=== PATIENT | male | born 1965 | race Caucasian/White ===

== ENCOUNTER 2018-12-08 09:21 | Outpatient (CLI) | payer OTHER ==
[2018-12-08 17:11] LABS: BASOPHILS # (AUTO) 0.1 10^3/uL (0.0-0.1); BASOPHILS % (AUTO) 1.1 %; EOSINOPHILS # (AUTO) 0.1 10^3/uL (0.0-0.7); EOSINOPHILS % (AUTO) 2.6 %; HGB - HEMOGLOBIN 10.6 g/dL (14.0-18.0); LYMPHOCYTES # (AUTO) 1.3 10^3/uL (1.5-3.5); LYMPHOCYTES % (AUTO) 28.8 %; MEAN CORPUSCULAR HEMOGLOBIN 34.9 pg (27.0-31.0); MEAN CORPUSCULAR HGB CONC 33.1 g/dL (32.0-36.0); MEAN CORPUSCULAR VOLUME 105.3 fL (80.0-94.0); MEAN PLATELET VOLUME 11.3 fL (7.4-11.4); MONOCYTES # (AUTO) 0.6 10^3/uL (0.0-1.0); MONOCYTES % (AUTO) 12.4 %; NEUTROPHILS # (AUTO) 2.6 10^3/uL (1.5-6.6); NEUTROPHILS % (AUTO) 54.7 %; PLT - PLATELET COUNT 181 10^3/uL (130-450); RED BLOOD COUNT 3.04 10^6/uL (4.70-6.10); RED CELL DISTRIBUTION WIDTH 14.2 % (12.0-15.0); WHITE BLOOD COUNT 4.7 x10^3/uL (4.8-10.8)
[2018-12-08 17:33] LABS: % IRON SATURATION 36 % (20-50); IRON 105 ug/dL (45-182); TOTAL IRON BINDING CAPACITY 295 ug/dL (250-450); TRANSFERRIN 211 mg/dL (180-329)
[2018-12-08 17:54] LABS: PLATELET MORPHOLOGY NORMAL APPEARANCE (NORMAL); RBC MORPHOLOGY (MULTIPLE) 1+ MACROCYTOSIS (NORMAL)
[2018-12-08 17:55] LABS: DIFFERENTIAL COMMENT MANUAL=AUTO DIFF; PLATELET ESTIMATE, MANUAL NORMAL (130-450,000) (NORMAL)
== END 2018-12-08 09:22 | disposition home or self-care (01) ==
LOC: LAB.S 09:21
PROVIDERS: ATTEND Nurse Practitioner Family
DX: D64.9 Anemia, unspecified (principal); R77.8 Other specified abnormalities of plasma proteins
CPT/HCPCS: 36415; 82728; 83540; 84466; 85025

== ENCOUNTER 2020-03-19 08:04 | Outpatient (CLI) | payer MEDICAID ==
[2020-03-19 15:42] LABS: BASOPHILS % (AUTO) 0.5 %; EOSINOPHILS # (AUTO) 0.5 10^3/uL (0.0-0.7); EOSINOPHILS % (AUTO) 5.7 %; HGB - HEMOGLOBIN 10.6 g/dL (14.0-18.0); LYMPHOCYTES # (AUTO) 2.9 10^3/uL (1.5-3.5); MEAN CORPUSCULAR HEMOGLOBIN 38.1 pg (27.0-31.0); MEAN CORPUSCULAR HGB CONC 35.2 g/dL (32.0-36.0); MEAN CORPUSCULAR VOLUME 108.3 fL (80.0-94.0); MEAN PLATELET VOLUME 12.4 fL (7.4-11.4); MONOCYTES # (AUTO) 0.7 10^3/uL (0.0-1.0); MONOCYTES % (AUTO) 8.9 %; NEUTROPHILS # (AUTO) 3.9 10^3/uL (1.5-6.6); NEUTROPHILS % (AUTO) 48.7 %; PLT - PLATELET COUNT 72 10^3/uL (130-450); RED BLOOD COUNT 2.78 10^6/uL (4.70-6.10); RED CELL DISTRIBUTION WIDTH 12.8 % (12.0-15.0); WHITE BLOOD COUNT 8.1 x10^3/uL (4.8-10.8)
[2020-03-19 16:01] LABS: ALBUMIN/GLOBULIN RATIO 0.5 (1.0-2.2); ALKALINE PHOSPHATASE 81 IU/L (42-121); ALT ALANINE AMINOTRANSFERASE 36 IU/L (10-60); AST ASPARTATE AMINOTRANSFERASE 103 IU/L (10-42); BILIRUBIN,TOTAL 5.9 mg/dL (0.2-1.0); BUN - BLOOD UREA NITROGEN 11 mg/dL (6-20); CALCIUM 8.6 mg/dL (8.5-10.3); CARBON DIOXIDE - CO2 26 mmol/L (21-32); CHLORIDE 96 mmol/L (101-111); CHOL/HDL RATIO 8.1 (<5.0); CHOLESTEROL 179 mg/dL; CREATININE 1.2 mg/dL (0.6-1.2); CRP - C-REACTIVE PROTEIN 1.1 mg/dL (0-1.0); GLUCOSE 140 mg/dL (70-100); HDL CHOLESTEROL 22 mg/dL; LDL CHOLESTEROL,CALCULATED 133 mg/dL; SODIUM 136 mmol/L (135-145); TOTAL PROTEIN 8.7 g/dL (6.7-8.2); VLDL CHOLESTEROL 24 mg/dL
[2020-03-19 18:47] LABS: HEMOGLOBIN A1c% 8.7 % (4.27-6.07)
== END 2020-03-19 08:05 | disposition home or self-care (01) ==
LOC: LAB.S 08:04
PROVIDERS: ATTEND Physician Assistant
DX: M06.9 Rheumatoid arthritis, unspecified (principal); K76.0 Fatty (change of) liver, not elsewhere classified; D64.9 Anemia, unspecified; E55.9 Vitamin D deficiency, unspecified; F32.9 Major depressive disorder, single episode, unspecified; E11.9 Type 2 diabetes mellitus without complications; L40.9 Psoriasis, unspecified; K86.1 Other chronic pancreatitis; I10 Essential (primary) hypertension; E78.5 Hyperlipidemia, unspecified
CPT/HCPCS: 36415; 80050; 80061; 82306; 83036; 83721; 84153; 85651; 86140

== ENCOUNTER 2020-03-20 13:51 | Outpatient (CLI) | payer MEDICAID ==
[2020-03-20 20:08] LABS: BASOPHILS % (AUTO) 0.5 %; EOSINOPHILS # (AUTO) 0.3 10^3/uL (0.0-0.7); HGB - HEMOGLOBIN 10.6 g/dL (14.0-18.0); LYMPHOCYTES # (AUTO) 2.2 10^3/uL (1.5-3.5); MEAN CORPUSCULAR HEMOGLOBIN 38.4 pg (27.0-31.0); MEAN CORPUSCULAR HGB CONC 35.6 g/dL (32.0-36.0); MEAN PLATELET VOLUME 12.2 fL (7.4-11.4); MONOCYTES # (AUTO) 0.5 10^3/uL (0.0-1.0); MONOCYTES % (AUTO) 6.3 %; NEUTROPHILS # (AUTO) 4.7 10^3/uL (1.5-6.6); NEUTROPHILS % (AUTO) 60.9 %; PLT - PLATELET COUNT 71 10^3/uL (130-450); RED BLOOD COUNT 2.76 10^6/uL (4.70-6.10); RED CELL DISTRIBUTION WIDTH 13.3 % (12.0-15.0); WHITE BLOOD COUNT 7.7 x10^3/uL (4.8-10.8)
[2020-03-20 20:25] LABS: ALBUMIN 2.9 g/dL (3.2-5.5); ALBUMIN/GLOBULIN RATIO 0.5 (1.0-2.2); BILIRUBIN,TOTAL 5.3 mg/dL (0.2-1.0); CALCIUM 8.5 mg/dL (8.5-10.3); CREATININE 1.6 mg/dL (0.6-1.2); TOTAL PROTEIN 8.7 g/dL (6.7-8.2)
[2020-03-20 20:48] LABS: CREATININE,URINE 222.9 mg/dL; MICROALBUM/CREATININE RATIO,UR 7.2 ug/mg (<30.0); MICROALBUMIN,URINE 1.6 mg/dL (0-300.0)
[2020-03-24 11:22] LABS: ANA SCREEN NEGATIVE (NEGATIVE)
[2020-03-26 02:56] LABS: LIVER KIDNEY MICROSOME AB <20.0 U
== END 2020-03-20 13:52 | disposition home or self-care (01) ==
LOC: LAB.S 13:51
PROVIDERS: ATTEND Physician Assistant
DX: R70.0 Elevated erythrocyte sedimentation rate (principal); R74.8 Abnormal levels of other serum enzymes; R89.9 Unspecified abnormal finding in specimens from other organs, systems and tissues; R23.3 Spontaneous ecchymoses; E78.5 Hyperlipidemia, unspecified; K76.0 Fatty (change of) liver, not elsewhere classified; D64.9 Anemia, unspecified; K86.1 Other chronic pancreatitis; I10 Essential (primary) hypertension
CPT/HCPCS: 36415; 80053; 81001; 81599; 82043; 82390; 82570; 83516; 84466; 85025; 85651; 86038; 86376; 87086

== ENCOUNTER 2020-03-20 15:51 | Observation (INO) | payer MEDICAID, OTHER ==
--- NOTE | 2020-03-20 16:23 | ED Physician Documentation ---
History of Present Illness - Stated complaint Stated Complaint: SENT BY DOC - Chief complaint Chief Complaint: Abd Pain - History obtained from History obtained from: Patient - Additonal information Additional information: 54-year-old male presents to the emergency department on the advice of his primary care provider for evaluation of abnormal liver function tests and an elevated bilirubin (5.9). Patient reports that he feels well with the exception of fatigue and loss of appetite. He was notified by his primary care provider today that he has markedly elevated bilirubin and was told to come to the emergency department. He does state that 3 weeks ago he developed petechiae and purpura on his lower legs. He did see his primary care provider. It is unclear what the treatment was for that and it had begun to resolve until it began to worsen over the last 3 to 4 days. PMH: hypertension, diabetes and depression. Meds: Metformin, losartan, bupropion Social: No tobacco. History of EtOH use/abuse. No alcohol for 3 months. He denies chest pain, shortness of breath nausea vomiting or diarrhea. He has no melena or hematochezia. He denies any fevers cough or congestion. He does report that he is lost his appetite over the last week. Review of Systems Constitutional: reports: Myalgias, Fatigue. denies: Fever, Chills, Weight Loss, Sweats Eyes: reports: Reviewed and negative Ears: reports: Reviewed and negative Nose: reports: Reviewed and negative Throat: reports: Reviewed and negative Cardiac: reports: Reviewed and negative Respiratory: reports: Reviewed and negative GI: denies: Abdominal Pain, Abdominal Swelling, Nausea, Vomiting, Hematemesis, Bloody / black stool : denies: Dysuria, Frequency, Hesitancy Skin: reports: Rash, Lesions (Extensive purpura bilateral lower extremities) Musculoskeletal: reports: Reviewed and negative Neurologic: reports: Generalized weakness PD PAST MEDICAL HISTORY - Allergies Allergies/Adverse Reactions: Allergies Allergy/AdvReac Type Severity Reaction Status Date / Time No Known Drug Allergies Allergy Verified 03/20/20 15:57 PD ED PE EXPANDED - General General: Alert, No acute distress, Well developed/nourished - HEENT HEENT: Scleral icterus - Neck Neck: Supple w/out meningeal sx, No tenderness. No: Adenopathy, Soft tissue TTP - Cardiac Cardiac: Regular Rate, Regular Rhythm, Radial strong equal, Pedal strong equal, Cap refill < 2 sec. No: Murmur Present - Respiratory Respiratory: Clear to ausultation ben. No: Distress, Labored - Abdomen Abdomen: Normal Bowel sounds. No: Tender to palpation - Derm Derm: Purpura (Extensive purpura on the soles of the feet lower extremities and thighs. No petechiae or purpura of the abdomen arms.) - Extremities Extremities: Pedal Pulses Present. No: Deformity, Tenderness, Pedal edema bilateral, Right calf TTP/cord, Left calf TTP/cord - Neuro Neuro: Alert and Oriented X 3, CNII-XII intact, Normal gait, Normal finger nose, Normal speech - GCS Eye Opening: Spontaneous Motor: Obeys Commands Verbal: Oriented Total: 15 Results - Vitals Vitals: Vital Signs - 24 hr 03/20/20 03/20/20 03/20/20 15:53 17:05 19:00 Temperature 36.3 C L 36.3 C L Heart Rate 112 H 95 91 Respiratory 16 16 16 Rate Blood Pressure 119/64 108/68 110/65 O2 Saturation 99 98 99 Oxygen O2 Source Room air - Labs Labs: Laboratory Tests 03/20/20 03/20/20 03/20/20 16:13 16:13 16:13 WBC 6.9 RBC 2.74 L Hgb 10.5 L Hct 29.0 L MCV 105.8 H MCH 38.3 H MCHC 36.2 H RDW 13.1 Plt Count 71 L MPV 10.8 Neut # (Auto) 4.6 Lymph # (Auto) 1.6 [place] # (Auto) 0.5 Eos # (Auto) 0.2 Baso # (Auto) 0.0 Absolute Nucleated RBC 0.00 Nucleated RBC % 0.0 ESR PT INR Sodium 133 L Potassium 3.7 Chloride 92 L Carbon Dioxide 21 Anion Gap 20.0 H BUN 11 Creatinine 1.8 H Estimated GFR (MDRD) 40 L Glucose 162 H Calcium 8.3 L Total Bilirubin 5.3 H AST 97 H ALT 36 Alkaline Phosphatase 87 Ammonia 112.6 H* C-Reactive Protein 1.0 Total Protein 8.4 H Albumin 3.0 L Globulin 5.4 H Albumin/Globulin Ratio 0.6 L Lipase 25 Urine Color Urine Clarity Urine pH Ur Specific [place] Urine Protein Urine Glucose (UA) Urine Ketones Urine Occult Blood Urine Nitrite Urine Bilirubin Urine Urobilinogen Ur Leukocyte Esterase Ur Microscopic Review Urine Culture Comments Nasal Adenovirus (PCR) Nasal B. parapertussis DNA (PCR) Nasal Coronavir 229E PCR Nasal Coronavir HKU1 PCR Nasal Coronavir NL63 PCR Nasal Coronavir OC43 PCR Nasal Enterovir/Rhinovir PCR Nasal Influenza B PCR Nasal Influenza A PCR Nasal Parainfluen 1 PCR Nasal Parainfluen 2 PCR Nasal Parainfluen 3 PCR Nasal Parainfluen 4 PCR Nasal RSV (PCR) Nasal B.pertussis DNA PCR Nasal C.pneumoniae (PCR) Osmani Human Metapneumo PCR Nasal M.pneumoniae (PCR) Nasal SARS-CoV-2 (PCR) Rheumatoid Factor 03/20/20 03/20/20 03/20/20 16:13 16:13 16:13 WBC RBC Hgb Hct MCV MCH MCHC RDW Plt Count MPV Neut # (Auto) Lymph # (Auto) [place] # (Auto) Eos # (Auto) Baso # (Auto) Absolute Nucleated RBC Nucleated RBC % ESR > 140 H PT 21.4 H INR 2.0 H Sodium Potassium Chloride Carbon Dioxide Anion Gap BUN Creatinine Estimated GFR (MDRD) Glucose Calcium Total Bilirubin AST ALT Alkaline Phosphatase Ammonia C-Reactive Protein Total Protein Albumin Globulin Albumin/Globulin Ratio Lipase Urine Color Urine Clarity Urine pH Ur Specific [place] Urine Protein Urine Glucose (UA) Urine Ketones Urine Occult Blood Urine Nitrite Urine Bilirubin Urine Urobilinogen Ur Leukocyte Esterase Ur Microscopic Review Urine Culture Comments Nasal Adenovirus (PCR) Nasal B. parapertussis DNA (PCR) Nasal Coronavir 229E PCR Nasal Coronavir HKU1 PCR Nasal Coronavir NL63 PCR Nasal Coronavir OC43 PCR Nasal Enterovir/Rhinovir PCR Nasal Influenza B PCR Nasal Influenza A PCR Nasal Parainfluen 1 PCR Nasal Parainfluen 2 PCR Nasal Parainfluen 3 PCR Nasal Parainfluen 4 PCR Nasal RSV (PCR) Nasal B.pertussis DNA PCR Nasal C.pneumoniae (PCR) Osmani Human Metapneumo PCR Nasal M.pneumoniae (PCR) Nasal SARS-CoV-2 (PCR) Rheumatoid Factor NEGATIVE 03/20/20 03/20/20 16:30 19:38 WBC RBC Hgb Hct MCV MCH MCHC RDW Plt Count MPV Neut # (Auto) Lymph # (Auto) [place] # (Auto) Eos # (Auto) Baso # (Auto) Absolute Nucleated RBC Nucleated RBC % ESR PT INR Sodium Potassium Chloride Carbon Dioxide Anion Gap BUN Creatinine Estimated GFR (MDRD) Glucose Calcium Total Bilirubin AST ALT Alkaline Phosphatase Ammonia C-Reactive Protein Total Protein Albumin Globulin Albumin/Globulin Ratio Lipase Urine Color YELLOW Urine Clarity CLEAR Urine pH 6.0 Ur Specific [place] <=1.005 Urine Protein NEGATIVE Urine Glucose (UA) NEGATIVE Urine Ketones NEGATIVE Urine Occult Blood TRACE-INTA Urine Nitrite NEGATIVE Urine Bilirubin NEGATIVE Urine Urobilinogen 1 (NORMAL) Ur Leukocyte Esterase NEGATIVE Ur Microscopic Review NOT INDICATED Urine Culture Comments NOT INDICATED Nasal Adenovirus (PCR) NOT DETECTED Nasal B. parapertussis DNA (PCR) NOT DETECTED Nasal Coronavir 229E PCR NOT DETECTED Nasal Coronavir HKU1 PCR NOT DETECTED Nasal Coronavir NL63 PCR NOT DETECTED Nasal Coronavir OC43 PCR NOT DETECTED Nasal Enterovir/Rhinovir PCR NOT DETECTED Nasal Influenza B PCR NOT DETECTED Nasal Influenza A PCR NOT DETECTED Nasal Parainfluen 1 PCR NOT DETECTED Nasal Parainfluen 2 PCR NOT DETECTED Nasal Parainfluen 3 PCR NOT DETECTED Nasal Parainfluen 4 PCR NOT DETECTED Nasal RSV (PCR) NOT DETECTED Nasal B.pertussis DNA PCR NOT DETECTED Nasal C.pneumoniae (PCR) NOT DETECTED Osmani Human Metapneumo PCR NOT DETECTED Nasal M.pneumoniae (PCR) NOT DETECTED Nasal SARS-CoV-2 (PCR) NOT DETECTED Rheumatoid Factor - Rads (name of study) abd US Radiology: Final report received (Cirrhosis with heterogeneous hepatic parenchymal attenuation. No definite evidence of discrete mass although cirrhotic liver features limit the sensitivity of ultrasound. Markedly hydropic gallbladder with sludge but no evidence of tension distention and or wall thick ening to indicate cholecystitis) CT abd w Radiology: Final report received (Cirrhotic liver with suggestion of a possible mass although this may simply represent a pseudomass caused by surrounding atrophy as a function of cirrhosis. Nonemergent hepatic protocol MRI is recommended) PD MEDICAL DECISION MAKING - ED course Complexity details: reviewed results, re-evaluated patient, considered differential, d/w patient, d/w international travel consultant (Dr. Ramon GI) ED course: 54-year-old gentleman presents to the emergency department for evaluation of elevated bilirubin seen on labs obtained yesterday. He also has a 3-week history of purpura in his lower extremities as well as fatigue and anorexia. Today on labs we do note a mild anemia with thrombocytopenia and a platelet count of 72. This is stable in comparison to yesterday's values. Though he does have significant purpura of his lower extremities, he denies any melena or hematochezia. He does not have any bruising or bleeding of the gums. He does have an elevated INR as well as a bilirubin of 3.0. He has only mild AST elevation. His alk phos is essentially normal. An ultrasound of the abdomen is consistent with cirrhosis. A CT of the abdomen is also consistent with cirrhosis. There is concerned that there may be a pseudomass within the liver but it is difficult to appreciate on CT scan. A dedicated MRI is recommended. This gentleman's MELD score is 28 giving him an approximately 20% mortality in the next 3 months Of concern for this gentleman is an elevated ammonia level as well as worsening kidney function over the last 24 hours. Today's creatinine is 1.8. While here in the emergency department I have ordered 2 L of crystalloid as well as 30 gm of lactulose 1729: I did speak with Dr. Adam the daytime hospitalist. She agrees to bring the patient in under an observation status overnight for evaluation of his acute kidney injury, to provide hydration and reevaluate labs in a.m. She did request that I speak with [facility] for input 1899: I did discuss this case on the phone with Dr. Ramon a crop or grain farmworker associated with [facility]. At this point he feels that this gentleman likely has decompensated cirrhosis. Given the worsening kidney function he recommends aggressive volume challenge overnight. He would recommend that we initiate lactulose treatment for the elevated ammonia level. He will need close follow-up with gastroenterology upon discharge 1944: I have spoken with and Joselito on the phone and notified them of the conversation I had with GI. The plan is to admit the patient overnight on an observation status with the goal of therapy being to see an improvement in his acute kidney injury. The long-term plan should be for outpatient follow-up with gastroenterology. Observation status overnight is appropriate for this plan. Departure - Departure Disposition: ED Place in Observation Clinical Impression: Hyperbilirubinemia, DREAD (acute kidney injury), Increased ammonia level, Purpura, Decompensation of cirrhosis of liver
[2020-03-20 16:24] LABS: BASOPHILS % (AUTO) 0.4 %; EOSINOPHILS # (AUTO) 0.2 10^3/uL (0.0-0.7); EOSINOPHILS % (AUTO) 2.2 %; HGB - HEMOGLOBIN 10.5 g/dL (14.0-18.0); LYMPHOCYTES # (AUTO) 1.6 10^3/uL (1.5-3.5); LYMPHOCYTES % (AUTO) 23.1 %; MEAN CORPUSCULAR HEMOGLOBIN 38.3 pg (27.0-31.0); MEAN CORPUSCULAR HGB CONC 36.2 g/dL (32.0-36.0); MEAN CORPUSCULAR VOLUME 105.8 fL (80.0-94.0); MEAN PLATELET VOLUME 10.8 fL (7.4-11.4); MONOCYTES # (AUTO) 0.5 10^3/uL (0.0-1.0); MONOCYTES % (AUTO) 7.4 %; NEUTROPHILS # (AUTO) 4.6 10^3/uL (1.5-6.6); NEUTROPHILS % (AUTO) 66.6 %; PLT - PLATELET COUNT 71 10^3/uL (130-450); RED BLOOD COUNT 2.74 10^6/uL (4.70-6.10); RED CELL DISTRIBUTION WIDTH 13.1 % (12.0-15.0); WHITE BLOOD COUNT 6.9 x10^3/uL (4.8-10.8)
[2020-03-20 16:38] LABS: ALBUMIN/GLOBULIN RATIO 0.6 (1.0-2.2); BILIRUBIN,TOTAL 5.3 mg/dL (0.2-1.0); CALCIUM 8.3 mg/dL (8.5-10.3); CREATININE 1.8 mg/dL (0.6-1.2); TOTAL PROTEIN 8.4 g/dL (6.7-8.2)
--- NOTE | 2020-03-20 16:38 | XRAY Report ---
PROCEDURE: Chest 1 View X-Ray INDICATIONS: Chest pain TECHNIQUE: One view of the chest was acquired. COMPARISON: None. FINDINGS: Surgical changes and devices: None. Lungs and pleura: No pleural effusions or pneumothorax. Lungs are clear. Mediastinum: Mediastinal contours appear normal. Heart size is normal. Bones and chest wall: No suspicious bony lesions. Overlying soft tissues appear unremarkable. IMPRESSION: No acute cardiopulmonary process. Reviewed by: Aldair Clemens MD on 03/20/2020 3:36 PM [facility] Approved by: Aldair Clemens MD on 03/20/2020 3:36 PM [facility] Station ID: [id number]
[2020-03-20 16:46] LABS: PT - PROTHROMBIN TIME 21.4 secs (9.9-12.6)
--- NOTE | 2020-03-20 17:26 | Ultrasound Report ---
PROCEDURE: Abdomen Limited INDICATIONS: jaundice, elevated bili, purpura TECHNIQUE: Real-time focused scanning was performed of the abdomen, with image documentation. COMPARISON: None FINDINGS: Markedly coarsened hepatic echotexture with a nodular hepatic contour, findings which are indicative of cirrhosis. There is no definite evidence of a discrete hepatic mass, although there are areas of h eterogenous parenchymal attenuation suspicious for a possible infiltrative mass. No intrahepatic biliary ductal dilatation. The common duct measures 6-7 mm at the weston hepatis and 9 mm distally near the pancreatic head. The gallbladder is markedly hydropic, measuring up to 16 cm in greatest dimension, however does not a ppear to be tense. There is no wall thickening or pericholecystic fluid. Sludge is noted within the g allbladder layering dependently. The pancreas is obscured by bowel/gastric gas and is not evaluated. Unremarkable right kidney. IMPRESSION: Cirrhosis with heterogenous hepatic parenchymal attenuation. No definite evidence of discrete mass al though cirrhotic liver features limit the sensitivity of ultrasound. It is understood that the patien t has a CT of the abdomen and pelvis pending, which will help to further evaluate for potential liver mass. Markedly hydropic gallbladder with sludge but no evidence of tension/distention or wall thickening to indicate cholecystitis. Reviewed by: Aldair Clemens MD on 03/20/2020 4:25 PM [facility] Approved by: Aldair Clemens MD on 03/20/2020 4:25 PM [facility] Station ID: [id number]
[2020-03-20 17:34] LABS: C. PNEUMONIAE- RESP PCR PANEL NOT DETECTED
[2020-03-20 17:36] LABS: RHEUMATOID FACTOR NEGATIVE (Negative)
[2020-03-20] MEDS ORDERED: IOVERSOL 320 100 ML VIAL IVP ONE ×2 (17:37→18:24)
[2020-03-20] MEDS ORDERED: SODIUM CHLORIDE 0.9% 1,000 ML IV STA ×2 (18:00→19:16)
--- NOTE | 2020-03-20 18:05 | CT Report ---
PROCEDURE: Abdomen/Pelvis W INDICATIONS: Elevated bilirubin, purpura CONTRAST: IV CONTRAST: Optiray 320 ml: 100 PO CONTRAST: *NO PO CONTRAST TECHNIQUE: After the administration of intravenous contrast, 5 mm thick sections acquired from the diaphragms to the symphysis. 5 mm thick coronal and sagittal reformats were acquired. For radiation dose reducti on, the following was used: automated exposure control, adjustment of mA and/or kV according to jocelin ent size. COMPARISON: Same-day ultrasound FINDINGS: Image quality: Excellent. ABDOMEN: Lung bases: Lung bases are clear. Heart size is normal. Solid organs: Heterogenous mottled attenuation of the liver with nodular contour, consistent with son ographic features of cirrhosis. There is no definite evidence of a liver mass, although there is a so mewhat masslike exophytic margin of the medial right hepatic lobe border (best appreciated on series 3 image 31 and series 6 image 17). Hepatic and portal veins are patent. Spleen is been removed. Adren al glands unremarkable. Kidneys within normal limits. No pancreatic abnormality identified. Hydropic gallbladder with no findings of cholecystitis. Peritoneum and bowel: No abnormally dilated or thickened loops of bowel. No pericolonic or mesenteric inflammatory changes. Nodes and vessels: No retroperitoneal or mesenteric adenopathy by size criteria. Aorta and inferior vena cava are normal in size. Miscellaneous: No ventral hernias. PELVIS: Genitourinary: Bladder wall thickness is normal. Prostate is within normal limits. Miscellaneous: No threshold enlarged pelvic or inguinal lymph node. Bones: No suspicious bony lesions. No vertebral body compression fractures. IMPRESSION: Cirrhotic liver with suggestion of a possible mass, although this may simply represent a pseudomass c aused by surrounding hepatic atrophy as a function of cirrhosis. Nonemergent hepatic protocol MRI wit h and without IV contrast is recommended for further evaluation. Reviewed by: Aldair Clemens MD on 03/20/2020 5:03 PM [facility] Approved by: Aldair Clemens MD on 03/20/2020 5:03 PM [facility] Station ID: [id number]
[2020-03-20] MEDS ORDERED: LACTULOSE 10 GM /15 ML UDC PO STA (18:14)
[2020-03-20 19:44] LABS: BILIRUBIN,URINE NEGATIVE (NEGATIVE); GLUCOSE, URINE (UA) NEGATIVE (NEGATIVE); KETONES,URINE (UA) NEGATIVE (NEGATIVE); LEUKOCYTE ESTERASE, URINE NEGATIVE (NEGATIVE); NITRITE,URINE NEGATIVE (NEGATIVE); OCCULT BLOOD,URINE TRACE-INTA (NEGATIVE); PROTEIN,URINE NEGATIVE (NEGATIVE); UROBILINOGEN,URINE 1 (NORMAL) E.U./dL (NORMAL)
[2020-03-20] MEDS ORDERED: SODIUM CHLORIDE FLUSH 0.9% 10 ML SYRINGE IVP PRN (19:51)
[2020-03-20 19:52] LABS: CLARITY,URINE CLEAR (CLEAR)
--- NOTE | 2020-03-20 19:59 | HISTORY & PHYSICAL EXAMINATION ---
Chief Complaint - Chief Complaint Chief Complaint: lower extremity purpura History of Present Illness - Admitted From Admitted From:: [facility] ED - History Obtained From Records Reviewed: Yes History obtained from: Patient - History of Present Illness HPI Comment/Other: Patient is a 54-year-old male with medical history significant for diabetes mellitus type 2 on Metformin, hypertension and depression who presented to the ED today for imaging and labs at the request of his primary care physician after routine labs showed an elevated bilirubin and ESR. He has a rash on his lower extremity for the past 3 to 4 weeks. It is nonpruritic and painless. It will be described as a purpuric rash. Initially it started around his ankles that moreno s progressed to the base of his feet and up his legs to meet Ronaldo. He denies any previous occurrence. He denied chest pain, dyspnea, abdominal pain, nausea, vomiting, fever. He denies lower extremity edema. He has experienced 8 to 9 pound weight loss in the past 3 months because he has not been eating due to not feeling hungry. His ESR was 140, bilirubin 5.9 and he was found to have an ammonia level of 112. His INR is also 2. He used to drink 1/5 pint of vodka per week but he stopped drinking 2 months ago. He was also found to have a creatinine of 1.8. He does not recall HAVING kidney disease and has never seen a senior solutions architect. After discussion by the ED provider with gastroenterology it is felt that he has decompensated liver cirrhosis and it is recommended that he receive IV hydration and then he is to follow-up with GI outpatient. 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 Social History Notes: He lives alone. He is independent of activities of daily living. He used to drink 1/5 pint of vodka every week but stopped 2 months ago. He denies tobacco or recreational substance use. He used to work for [employer] but is currently not working. - POLST Patient has POLST: No POLST Status: Full Code Meds/Allgy - Allergies Allergies/Adverse Reactions: Allergies Allergy/AdvReac Type Severity Reaction Status Date / Time No Known Drug Allergies Allergy Verified 03/20/20 15:57 Review of Systems - Constitutional Constitutional: reports: Chills, Poor appetite, Weight loss. denies: Fatigue, Fever - Eyes Eyes: denies: Pain, Vision loss, Dipolpia - Ears, Nose & Throat Ears, Nose & Throat: denies: Ear pain, Sore throat - Cardiovascular Cariovascular: denies: Irregular heart rate, Palpitations, Chest pain, Edema, Lightheadedness, Syncope - Respiratory Respiratory: denies: Cough, Sputum production, Wheezing, SOB at rest, SOB with exertion - Gastrointestinal Gastrointestinal: reports: Poor appetite. denies: Abdominal pain, Abdominal distention, Constipation, Diarrhea, Nausea, Vomiting, Coffee grounds emesis, Reflux/heartburn - Genitourinary Genitourinary: denies: Dysuria, Frequency, Urgency, Hematuria, Incontinence - Musculoskeletal Musculoskeletal: denies: Muscle pain, Back pain, Muscle aches - Integumentary Integumentary: reports: Rash (purpura on bilateral lower extremities from mid stewart distally). denies: Pruritis - Neurological Neurological: denies: General weakness, Focal weakness, Headache - Psychiatric Psychiatric: reports: Depression. denies: Anxiety - Endocrine Endocrine: denies: Polyuria, Polydypsia - Hematologic/Lymphatic Hematologic/Lymphatic: reports: Petechiae. denies: Anemia, Bruising (purpura) Prior Level of Functionality: Patient is independent of activities of daily living Exam - Vital Signs Vital Signs: Vital Signs x48h Temp Pulse Resp BP Pulse Ox 03/20/20 19:00 36.3 C L 91 16 110/65 99 03/20/20 17:05 95 16 108/68 98 03/20/20 15:53 36.3 C L 112 H 16 119/64 99 - Physical Exam General Appearance: positive: No acute distress, Alert Eyes Bilateral: positive: PERRL, EOMI ENT: positive: Dry mucous membranes Neck: positive: No JVD, Trachea midline. negative: Lymphadenopathy (R), Lymphadenopathy (L) Respiratory: positive: Chest non-tender, No respiratory distress, Breath sounds nml. negative: Wheezes, Rales, Rhonchi Cardiovascular: positive: Regular rate & rhythm, No murmur Abdomen: positive: Non-tender, No organomegaly, Nml bowel sounds, No distention. negative: Guarding, Rebound Back: positive: Nml inspection Skin: positive: Warm, Dry, Skin rash (purpura). negative: Cyanosis Extremities: positive: Non-tender, Full ROM, No pedal edema Neurologic/Psychiatric: positive: Oriented x3, Mood/affect nml Conclusion/Plan - Problem List (1) DREAD (acute kidney injury) Conclusion/Plan: This may be multifactorial. Chronic contributing factors would be diabetes and hypertension. Acute factors suspected would be a vasculitis, dehydration Patient's creatinine today is 1.8 with an estimated GFR of 40. His baseline is unknown. We will administer IV hydration with normal saline and recheck patient's creatinine in the morning. (2) Decompensation of cirrhosis of liver Conclusion/Plan: Patient used to drink one-fifth pint of vodka weekly. He quit 2 months ago. The patient's INR today is 2.0 and he is not on any anticoagulation. Albumin is 3.0. Patient's ammonia level was 112. Patient receiving lactulose 30g p.o. 3 times daily. Will recheck ammonia level in the morning Patient receiving IV hydration. Patient's MELD score is: 26 This reflects a 19.6% 3-month mortality Using the upper limit of the normal range for PT the patient's discriminant function value is 46. Patients with a Meld score > 21 or a Discriminant Function >/= 32 may benefit from treatment with glucocorticoids Will administer 40 mg of Methylprednisolone IV x1 Patient will need a referral from his primary care physician for follow-up with gastroenterology in the outpatient setting (3) Hyperammonemia Conclusion/Plan: Likely related to cirrhosis and liver failure. Patient is receiving Lactulose 30g p.o. 3 times daily (4) Purpura Conclusion/Plan: Vasculitis is suspected. Patient's INR was 140. ILIANA screen and complements have been ordered. Patient would need a referral for rheumatology in the outpatient setting. (5) Diabetes mellitus Conclusion/Plan: We will hold Metformin. Accu-Cheks before every meal and at bedtime. If indicated will order sliding scale insulin. Qualifiers: Diabetes mellitus type: type 2 (6) Hypertension Conclusion/Plan: Currently normotensive. We will resume patient's medication once verified. (7) Depression Conclusion/Plan: Will resume patient's medication once verified. (8) Hyperbilirubinemia Conclusion/Plan: Patient's total bilirubin was 5.3. We will repeat total bilirubin and direct bilirubin in the morning to better understand potential course of elevated levels. Patient will also need a referral for follow-up with gastroenterology in the outpatient setting - Lab Results Fish Bones: 03/20/20 16:13 03/20/20 16:13 Core Measures - DVT/VTE - Prophylaxis VTE/DVT Device ordered at admit?: Yes VTE/DVT Prophylaxis med ordered at admit?: Yes
[2020-03-20] MEDS ORDERED: traZODone 50 MG TABLET PO SCH (21:00)
[2020-03-20] MEDS: SODIUM CHLORIDE 0.9% 1,000 ML IV SCH (21:03)
[2020-03-20] MEDS: LACTULOSE 10 GM /15 ML UDC PO SCH (22:03)
[2020-03-20] MEDS: SODIUM CHLORIDE FLUSH 0.9% 10 ML SYRINGE IVP SCH (23:52)
[2020-03-21] MEDS ORDERED: methylPREDNISolone SUCCINATE 40 MG/ML VIAL IVP STA (00:15)
[2020-03-21] MEDS: SODIUM CHLORIDE 0.9% 1,000 ML IV SCH (03:23)
[2020-03-21 05:27] LABS: BASOPHILS % (AUTO) 0.4 %; EOSINOPHILS # (AUTO) 0.1 10^3/uL (0.0-0.7); EOSINOPHILS % (AUTO) 1.1 %; HGB - HEMOGLOBIN 9.6 g/dL (14.0-18.0); LYMPHOCYTES # (AUTO) 0.6 10^3/uL (1.5-3.5); MEAN CORPUSCULAR HEMOGLOBIN 37.9 pg (27.0-31.0); MEAN CORPUSCULAR VOLUME 105.5 fL (80.0-94.0); MEAN PLATELET VOLUME 11.5 fL (7.4-11.4); MONOCYTES # (AUTO) 0.2 10^3/uL (0.0-1.0); MONOCYTES % (AUTO) 3.8 %; NEUTROPHILS # (AUTO) 3.8 10^3/uL (1.5-6.6); NEUTROPHILS % (AUTO) 81.3 %; PLT - PLATELET COUNT 64 10^3/uL (130-450); RED BLOOD COUNT 2.53 10^6/uL (4.70-6.10); RED CELL DISTRIBUTION WIDTH 12.9 % (12.0-15.0); WHITE BLOOD COUNT 4.7 x10^3/uL (4.8-10.8)
[2020-03-21 05:31] LABS: INR 2.3 (0.8-1.2); PT - PROTHROMBIN TIME 24.1 secs (9.9-12.6)
[2020-03-21] MEDS: LACTULOSE 10 GM /15 ML UDC PO SCH (05:40)
[2020-03-21 05:41] LABS: ALBUMIN 2.4 g/dL (3.2-5.5); ALBUMIN/GLOBULIN RATIO 0.5 (1.0-2.2); BILIRUBIN,DIRECT 2.1 mg/dL (0.1-0.5); BILIRUBIN,INDIRECT 3.2 mg/dL; BILIRUBIN,TOTAL 5.3 mg/dL (0.2-1.0); CALCIUM 7.5 mg/dL (8.5-10.3); TOTAL PROTEIN 7.2 g/dL (6.7-8.2)
[2020-03-21] MEDS ORDERED: PANTOPRAZOLE 40 MG TABLET PO SCH (07:00)
[2020-03-21] MEDS ORDERED: CALCIUM GLUCONATE 1000 MG/10 ML VIAL ONE (07:42)
[2020-03-21] MEDS ORDERED: POTASSIUM CHLOR 10 MEQ/100 ML 10 MEQ/100 ML BAG IV SCH (08:00)
[2020-03-21] MEDS ORDERED: INSULIN ASPART 300 UNIT/3 ML PEN SUBQ SCH ×2 (08:00→12:00)
[2020-03-21] MEDS ORDERED: CALCIUM GLUCONATE 2,000 MG in SODIUM CHLORIDE 0.9% 100ML 100 ML IV ONE (08:00)
[2020-03-21] MEDS ORDERED: SODIUM CHLORIDE 0.9% 1,000 ML IV SCH (08:07)
[2020-03-21 08:24] VITALS: BP 109/67
--- NOTE | 2020-03-21 08:50 | Discharge Plan ---
Discharge Plan Problem Reviewed?: Yes Disposition: Home, Self Care Condition: Poor Prescriptions: Lactulose 10 gm PO TID #90 bottle Diet: Diabetic Activity Restrictions: Activity as Tolerated Shower Restrictions: No (fall precaution) Instruction Topics: Lactulose oral solution, Ammonia Health Concerns: liver failure, dehydration Plan of Treatment: advise you avoid alcohol completely, followup with your PCP to referral to GI doctor for your liver failure, you are prescribed new medication Lactulose to help you reduce Ammonia level, also referral from your PCP to waiter/waitress club to see your rash/lesion at your lower extremity. Keep hydration at home, followup with your PCP continue management of your diabetes as well. Care Goals: stabilization and improvement of your medical conditions Assessment: discussed the care plan with you, answer your questions, you understood and agreed. Additional Instructions or Follow Up instructions: you may followup with your PCP in one week, recheck your ammonia level, referral to GI and waiter/waitress club as out-pt. Should your symptoms return or worsen, you may present ER or call 911 for help. No Smoking: If you smoke, Please STOP! Call for help. Follow-up with: AMMON KOLB PA-C [Primary Care Provider] -
[2020-03-21] MEDS ORDERED: POTASSIUM CHLORIDE 20 MEQ TABLET PO ONE (08:51)
--- NOTE | 2020-03-21 09:07 | DISCHARGE SUMMARY ---
Discharge Summary Admit Date: 03/20/20 Discharge Date: 03/21/20 Discharging Provider: Ron Means Primary Care Provider: José Mercado Condition at Discharge: Poor Discharge Disposition: 01 Home, Self Care Discharge Facility Name: home - DIAGNOSES Discharge Diagnoses with Status of Each Condition: (1) DREAD (acute kidney injury) resolved, Advised the patient keep hydration in the home (2) Decompensation of cirrhosis of liver stable now. Patient's MELD score is 26. Advised the patient avoid alcohol, advise pt need referral from his primary care physician for follow-up with gastroenterology in the outpatient setting. CT of abdomen/pelvis suggest a possible liver mass, out-pt hepatic protocol MRI is advised as well. (3) Hyperammonemia reduced significantly. Today he is ammonia is 46 from admission 112. Patient is alert and orientated plus 4. Patient has a prescript of lactulose for DC'd (4) skin lesion Patient has redness pustular in his bilateral lower extremity. Patient reported this has been for couple months. He denies itching, pain. RA is negative. advise pt has a referral from his PCP for Manufacturing Shift Supervisor in the outpatient setting. pt has elevated ESR, but RA is negative, other rheumatic tests are pending. pt denies headache or vision change, advise pt has a referral from his PCP for Alkylation Operator in the outpatient setting if clinic indicated. (5) Diabetes mellitus Stable, follow-up with PCP continue management (6) Hypertension Stable (7) Depression Stable (8) Hyperbilirubinemia stable, Chronic liver failure. advise pt need a referral from his PCP for follow-up with gastroenterology in the outpatient setting - [facility] History of Present Illness: refer from Dr. Yee's HPI on 03/21/2020 Patient is a 54-year-old male with medical history significant for diabetes mellitus type 2 on Metformin, hypertension and depression who presented to the ED today for imaging and labs at the request of his primary care physician after routine labs showed an elevated bilirubin and ESR. He has a rash on his lower extremity for the past 3 to 4 weeks. It is nonpruritic and painless. It will be described as a purpuric rash. Initially it started around his ankles that has progressed to the base of his feet and up his legs to meet Ronaldo. He denies any previous occurrence. He denied chest pain, dyspnea, abdominal pain, nausea, vomiting, fever. He denies lower extremity edema. He has experienced 8 to 9 pound weight loss in the past 3 months because he has not been eating due to not feeling hungry. His ESR was 140, bilirubin 5.9 and he was found to have an ammonia level of 112. His INR is also 2. He used to drink 1/5 pint of vodka per week but he stopped drinking 2 months ago. He was also found to have a creatinine of 1.8. He does not recall HAVING kidney disease and has never seen a nursing clinical director. After discussion by the ED provider with gastroenterology it is felt that he has decompensated liver cirrhosis and it is recommended that he receive IV hydration and then he is to follow-up with GI outpatient. - HOSPITAL COURSE Hospital Course: Patient was referral from patient primary care for patient abnormal laboratory test results. Patient was found to have DREAD, significantly elevated ammonia level. Patient has a history of liver failure. Patient was treated with intravenous IV fluids, patient was given lactulose.After treatment, patient DREAD is resolved, ammonia level is reduced significantly. Patient is alert and orientated plus 4. Patient was discharged at hemodynamically stable condition. - ALLERGIES Allergies/Adverse Reactions: Allergies Allergy/AdvReac Type Severity Reaction Status Date / Time No Known Drug Allergies Allergy Verified 03/20/20 15:57 - MEDICATIONS Home Medications: Ambulatory Orders Medication Instructions Recorded Confirmed Lactulose 10 gm PO TID #90 bottle 03/21/20 Losartan Potassium 25 mg PO DAILY 03/21/20 03/21/20 buPROPion [Wellbutrin Xl] 150 mg PO DAILY 03/21/20 03/21/20 metFORMIN [Glucophage] 1,000 mg PO BID 03/21/20 03/21/20 - PHYSICAL EXAM AT DISCHARGE General Appearance: positive: No acute distress, Alert. negative: Lethargic Eyes Bilateral: positive: Normal inspection, PERRL, No lid inflammation ENT: positive: ENT inspection nml, No signs of dehydration. negative: Purulent nasal drainage Neck: positive: Nml inspection, Thyroid nml, Trachea midline. negative: Thyromegaly, Tracheal deviation Respiratory: positive: Chest non-tender, No respiratory distress, Breath sounds nml. negative: Wheezes, Rales, Rhonchi Cardiovascular: positive: Regular rate & rhythm, No murmur. negative: Tachycardia, Bradycardia, Systolic murmur, Diastolic murmur Peripheral Pulses: positive: 2+ Abdomen: positive: Non-tender, Nml bowel sounds, No distention. negative: Tenderness, Guarding, Rebound Extremities: positive: Non-tender, Full ROM, Nml appearance. negative: Calf tenderness Neurologic/Psychiatric: positive: Oriented x3, Motor nml, Sensation nml, Mood/affect nml. negative: Weakness, Sensory loss, Facial droop, Slurred/abnml speech, Depressed mood/affect - LABS Result Diagrams: 03/21/20 05:20 03/21/20 05:20 - FOLLOW UP Follow Up: advise you avoid alcohol completely, followup with your PCP to referral to GI doctor for your liver failure, you are prescribed new medication Lactulose to help you reduce Ammonia level, also referral from your PCP to continuous washer operator to see your rash/lesion at your lower extremity. Keep hydration at home, followup with your PCP continue management of your diabetes as well. you may followup with your PCP in one week, recheck your ammonia level, out-pt hepatic protocol MRI is advised for possible liver mass in your CT of abdomen/pelvis, referral to GI and continuous washer operator as out-pt. Should your symptoms return or worsen, you may present ER or call 911 for help. - TIME SPENT Time Spent in Discharge (Minutes): 30
[2020-03-21] MEDS: SODIUM CHLORIDE FLUSH 0.9% 10 ML SYRINGE IVP SCH (09:27)
--- NOTE | 2020-03-21 09:44 | PHARMACY PROGRESS NOTE ---
- Best Possible Medication History Admit Date and Time: 03/20/201950 Processed by: Pharmacy Medication History completed: Yes Secondary Source(s): Insurance records As the person ultimately responsible for medication therapy, providers are able to order a medication from an existing home medication list in [facility] via the "Reconcile Routine" prior to Confirmation of that medication by it support consultant. Such practice is discouraged except when the physician, in their clinical judgment, deems that a medical need exists for a medication without regard to previous use.
[2020-03-21 12:19] LABS: HEPATITIS A IGM NON-REACTIVE (NON-REACTIVE); HEPATITIS B SURFACE ANTIGEN NON-REACTIVE (NON-REACTIVE); HEPATITIS C ANTIBODY NON-REACTIVE (NON-REACTIVE)
[2020-03-21] MEDS ORDERED: LACTULOSE 10 GM /15 ML UDC PO SCH (14:00)
[2020-03-21 14:45] LABS: HEMOGLOBIN A1c% 8.4 % (4.27-6.07)
[2020-03-22 17:02] LABS: ANA SCREEN NEGATIVE (NEGATIVE)
== END 2020-03-21 09:35 | disposition home or self-care (01) ==
LOC: ED 15:51 → MS2 19:51
PROVIDERS: ADMIT Internal Medicine; ATTEND Nurse Practitioner Gerontology
DX: N17.9 Acute kidney failure, unspecified (principal); K74.69 Other cirrhosis of liver; E72.20 Disorder of urea cycle metabolism, unspecified; D69.2 Other nonthrombocytopenic purpura; E11.9 Type 2 diabetes mellitus without complications; Z79.84 Long term (current) use of oral hypoglycemic drugs; I10 Essential (primary) hypertension; F32.9 Major depressive disorder, single episode, unspecified; R63.4 Abnormal weight loss; E80.6 Other disorders of bilirubin metabolism; K72.90 Hepatic failure, unspecified without coma
CPT/HCPCS: 0202U; 71045; 74177; 76705; 80053; 80074; 81003; 82105; 82140; 82247; 82248; 83036; 83690; 85025; 85610; 85651; 86038; 86140; 86160; 86430; 96361; 96365; 96375; 99284; 99285; A9270; G0378; Q9967; 36415; 81001; 81599; 82043; 82390; 82570; 83516; 84466; 86376; 87086

== ENCOUNTER 2020-03-23 08:17 | Outpatient (CLI) | payer MEDICAID ==
[2020-03-23 08:59] LABS: BASOPHILS % (AUTO) 0.4 %; EOSINOPHILS # (AUTO) 0.3 10^3/uL (0.0-0.7); HGB - HEMOGLOBIN 9.9 g/dL (14.0-18.0); LYMPHOCYTES # (AUTO) 2.8 10^3/uL (1.5-3.5); LYMPHOCYTES % (AUTO) 35.8 %; MEAN CORPUSCULAR HEMOGLOBIN 38.7 pg (27.0-31.0); MEAN CORPUSCULAR HGB CONC 35.7 g/dL (32.0-36.0); MEAN CORPUSCULAR VOLUME 108.2 fL (80.0-94.0); MEAN PLATELET VOLUME 11.3 fL (7.4-11.4); MONOCYTES # (AUTO) 0.6 10^3/uL (0.0-1.0); MONOCYTES % (AUTO) 7.9 %; NEUTROPHILS % (AUTO) 51.8 %; PLT - PLATELET COUNT 78 10^3/uL (130-450); RED BLOOD COUNT 2.56 10^6/uL (4.70-6.10); WHITE BLOOD COUNT 7.7 x10^3/uL (4.8-10.8)
[2020-03-23 09:17] LABS: INR 2.2 (0.8-1.2); PT - PROTHROMBIN TIME 23.1 secs (9.9-12.6)
[2020-03-23 09:18] LABS: ALBUMIN 2.8 g/dL (3.2-5.5); ALBUMIN/GLOBULIN RATIO 0.5 (1.0-2.2); CALCIUM 8.2 mg/dL (8.5-10.3); TOTAL PROTEIN 8.2 g/dL (6.7-8.2)
== END 2020-03-23 08:18 | disposition home or self-care (01) ==
LOC: LAB 08:17
PROVIDERS: ATTEND Internal Medicine
DX: R17 Unspecified jaundice (principal); D69.2 Other nonthrombocytopenic purpura; R70.0 Elevated erythrocyte sedimentation rate; R79.82 Elevated C-reactive protein (CRP); R74.8 Abnormal levels of other serum enzymes; R79.9 Abnormal finding of blood chemistry, unspecified
CPT/HCPCS: 36415; 80053; 82140; 85025; 85610; 85651

== ENCOUNTER 2020-03-25 11:22 | Outpatient (CLI) | payer MEDICAID ==
[2020-03-25 15:29] LABS: BASOPHILS % (AUTO) 0.2 %; EOSINOPHILS # (AUTO) 0.3 10^3/uL (0.0-0.7); EOSINOPHILS % (AUTO) 3.8 %; HGB - HEMOGLOBIN 9.4 g/dL (14.0-18.0); LYMPHOCYTES # (AUTO) 2.1 10^3/uL (1.5-3.5); LYMPHOCYTES % (AUTO) 24.6 %; MEAN CORPUSCULAR HEMOGLOBIN 37.6 pg (27.0-31.0); MEAN CORPUSCULAR HGB CONC 34.8 g/dL (32.0-36.0); MEAN PLATELET VOLUME 11.5 fL (7.4-11.4); MONOCYTES % (AUTO) 11.7 %; NEUTROPHILS # (AUTO) 4.9 10^3/uL (1.5-6.6); NEUTROPHILS % (AUTO) 59.1 %; PLT - PLATELET COUNT 84 10^3/uL (130-450); RED CELL DISTRIBUTION WIDTH 14.3 % (12.0-15.0); WHITE BLOOD COUNT 8.3 x10^3/uL (4.8-10.8)
[2020-03-25 15:45] LABS: INR 1.9 (0.8-1.2); PT - PROTHROMBIN TIME 20.5 secs (9.9-12.6)
[2020-03-25 15:49] LABS: CHOLESTEROL 155 mg/dL; GLUCOSE,FASTING 192 mg/dL (70-100)
[2020-03-25 16:05] LABS: ALBUMIN 2.7 g/dL (3.2-5.5); ALBUMIN/GLOBULIN RATIO 0.6 (1.0-2.2); CREATININE 0.9 mg/dL (0.6-1.2); TOTAL PROTEIN 7.4 g/dL (6.7-8.2)
== END 2020-03-25 11:23 | disposition home or self-care (01) ==
LOC: LAB.S 11:22
PROVIDERS: ATTEND Internal Medicine
DX: K74.60 Unspecified cirrhosis of liver (principal); E83.51 Hypocalcemia; R79.1 Abnormal coagulation profile; R79.82 Elevated C-reactive protein (CRP); R74.8 Abnormal levels of other serum enzymes; R89.9 Unspecified abnormal finding in specimens from other organs, systems and tissues; R23.3 Spontaneous ecchymoses; E78.5 Hyperlipidemia, unspecified; K76.0 Fatty (change of) liver, not elsewhere classified; D64.9 Anemia, unspecified; E11.9 Type 2 diabetes mellitus without complications; K86.1 Other chronic pancreatitis; I10 Essential (primary) hypertension
CPT/HCPCS: 36415; 80053; 81599; 82330; 82465; 82947; 83735; 84478; 85025; 85610

== ENCOUNTER 2020-03-29 09:06 | Outpatient (CLI) | payer MEDICAID ==
[2020-03-29 14:51] LABS: BASOPHILS # (AUTO) 0.1 10^3/uL (0.0-0.1); BASOPHILS % (AUTO) 0.7 %; EOSINOPHILS # (AUTO) 0.3 10^3/uL (0.0-0.7); EOSINOPHILS % (AUTO) 3.2 %; HGB - HEMOGLOBIN 9.1 g/dL (14.0-18.0); LYMPHOCYTES % (AUTO) 36.6 %; MEAN CORPUSCULAR HEMOGLOBIN 38.2 pg (27.0-31.0); MEAN CORPUSCULAR VOLUME 109.2 fL (80.0-94.0); MEAN PLATELET VOLUME 11.7 fL (7.4-11.4); MONOCYTES # (AUTO) 1.4 10^3/uL (0.0-1.0); MONOCYTES % (AUTO) 16.4 %; NEUTROPHILS # (AUTO) 3.6 10^3/uL (1.5-6.6); NEUTROPHILS % (AUTO) 42.7 %; PLT - PLATELET COUNT 143 10^3/uL (130-450); RED BLOOD COUNT 2.38 10^6/uL (4.70-6.10); RED CELL DISTRIBUTION WIDTH 15.7 % (12.0-15.0); WHITE BLOOD COUNT 8.3 x10^3/uL (4.8-10.8)
[2020-03-29 14:56] LABS: ALBUMIN 2.6 g/dL (3.2-5.5); ALBUMIN/GLOBULIN RATIO 0.6 (1.0-2.2); BILIRUBIN,TOTAL 4.4 mg/dL (0.2-1.0); CREATININE 0.9 mg/dL (0.6-1.2); MAGNESIUM 1.1 mg/dL (1.7-2.8); TOTAL PROTEIN 7.3 g/dL (6.7-8.2)
[2020-03-29 15:03] LABS: INR 1.9 (0.8-1.2); PT - PROTHROMBIN TIME 20.3 secs (9.9-12.6)
== END 2020-03-29 09:07 | disposition home or self-care (01) ==
LOC: LAB.S 09:06
PROVIDERS: ATTEND Internal Medicine
DX: R17 Unspecified jaundice (principal); R70.0 Elevated erythrocyte sedimentation rate; R79.82 Elevated C-reactive protein (CRP); R74.8 Abnormal levels of other serum enzymes; R23.3 Spontaneous ecchymoses; E78.5 Hyperlipidemia, unspecified; D64.9 Anemia, unspecified; E11.9 Type 2 diabetes mellitus without complications; K86.1 Other chronic pancreatitis; I10 Essential (primary) hypertension; E83.42 Hypomagnesemia; R79.1 Abnormal coagulation profile; R79.9 Abnormal finding of blood chemistry, unspecified; K74.60 Unspecified cirrhosis of liver
CPT/HCPCS: 36415; 80053; 83735; 85025; 85610

== ENCOUNTER 2020-04-01 08:38 | Outpatient (CLI) | payer MEDICAID ==
[2020-04-01 15:06] LABS: BASOPHILS # (AUTO) 0.1 10^3/uL (0.0-0.1); EOSINOPHILS # (AUTO) 0.3 10^3/uL (0.0-0.7); EOSINOPHILS % (AUTO) 2.8 %; HCT - HEMATOCRIT 29.4 % (42.0-52.0); LYMPHOCYTES % (AUTO) 29.5 %; MEAN CORPUSCULAR HEMOGLOBIN 37.9 pg (27.0-31.0); MEAN CORPUSCULAR VOLUME 111.4 fL (80.0-94.0); MEAN PLATELET VOLUME 11.8 fL (7.4-11.4); MONOCYTES # (AUTO) 1.3 10^3/uL (0.0-1.0); MONOCYTES % (AUTO) 12.9 %; NEUTROPHILS # (AUTO) 5.5 10^3/uL (1.5-6.6); NEUTROPHILS % (AUTO) 53.5 %; PLT - PLATELET COUNT 165 10^3/uL (130-450); RED BLOOD COUNT 2.64 10^6/uL (4.70-6.10); RED CELL DISTRIBUTION WIDTH 15.9 % (12.0-15.0); WHITE BLOOD COUNT 10.2 x10^3/uL (4.8-10.8)
[2020-04-01 15:17] LABS: SLIDE REVIEW? Indicated
[2020-04-01 15:19] LABS: ALBUMIN 2.8 g/dL (3.2-5.5); ALBUMIN/GLOBULIN RATIO 0.6 (1.0-2.2); BILIRUBIN,TOTAL 4.1 mg/dL (0.2-1.0); CALCIUM 8.8 mg/dL (8.5-10.3); CREATININE 1.2 mg/dL (0.6-1.2); MAGNESIUM 1.3 mg/dL (1.7-2.8); POTASSIUM 4.7 mmol/L (3.5-5.0); TOTAL PROTEIN 7.8 g/dL (6.7-8.2)
[2020-04-01 15:34] LABS: INR 1.7 (0.8-1.2); PT - PROTHROMBIN TIME 18.6 secs (9.9-12.6)
[2020-04-01 16:20] LABS: RBC MORPHOLOGY (MULTIPLE) 2+ MACROCYTOSIS (NORMAL)
[2020-04-01 16:21] LABS: PLATELET ESTIMATE, MANUAL NORMAL (130-450,000) (NORMAL); PLATELET MORPHOLOGY 1+ GIANT PLATELETS (NORMAL)
== END 2020-04-01 08:39 | disposition home or self-care (01) ==
LOC: LAB.S 08:38
PROVIDERS: ATTEND Internal Medicine
DX: E83.51 Hypocalcemia (principal); E83.42 Hypomagnesemia; R23.3 Spontaneous ecchymoses; R79.1 Abnormal coagulation profile
CPT/HCPCS: 36415; 80053; 83735; 85025; 85610

== ENCOUNTER 2020-04-12 09:31 | Outpatient (CLI) | payer MEDICAID ==
[2020-04-12 15:27] LABS: BASOPHILS # (AUTO) 0.1 10^3/uL (0.0-0.1); BASOPHILS % (AUTO) 0.7 %; EOSINOPHILS # (AUTO) 0.3 10^3/uL (0.0-0.7); EOSINOPHILS % (AUTO) 3.3 %; HGB - HEMOGLOBIN 10.4 g/dL (14.0-18.0); LYMPHOCYTES # (AUTO) 2.6 10^3/uL (1.5-3.5); LYMPHOCYTES % (AUTO) 34.2 %; MEAN CORPUSCULAR HEMOGLOBIN 37.8 pg (27.0-31.0); MEAN CORPUSCULAR HGB CONC 34.8 g/dL (32.0-36.0); MEAN CORPUSCULAR VOLUME 108.7 fL (80.0-94.0); MEAN PLATELET VOLUME 11.5 fL (7.4-11.4); MONOCYTES # (AUTO) 0.8 10^3/uL (0.0-1.0); MONOCYTES % (AUTO) 10.5 %; NEUTROPHILS # (AUTO) 3.9 10^3/uL (1.5-6.6); PLT - PLATELET COUNT 144 10^3/uL (130-450); RED BLOOD COUNT 2.75 10^6/uL (4.70-6.10); RED CELL DISTRIBUTION WIDTH 15.1 % (12.0-15.0); WHITE BLOOD COUNT 7.7 x10^3/uL (4.8-10.8)
[2020-04-12 15:31] LABS: ALBUMIN 2.9 g/dL (3.2-5.5); ALBUMIN/GLOBULIN RATIO 0.6 (1.0-2.2); BILIRUBIN,TOTAL 4.2 mg/dL (0.2-1.0); CALCIUM 9.4 mg/dL (8.5-10.3); CREATININE 0.9 mg/dL (0.6-1.2); MAGNESIUM 1.8 mg/dL (1.7-2.8); TOTAL PROTEIN 8.1 g/dL (6.7-8.2)
[2020-04-12 15:47] LABS: INR 1.7 (0.8-1.2); PT - PROTHROMBIN TIME 18.3 secs (9.9-12.6)
--- OUTSIDE RECORDS SUMMARY | 2020-04-16 01:50 | EXTERNAL MEDICAL SUMMARY RPT | Continuity of Care Document ---
:1965 Demographics Phone Unavailable Preferred Language Mongolian Marital Status Unknown Temple Affiliation Unknown Race Unknown Ethnic Group Unknown Author Organization [place] Address [address] [place] [address] Phone Care Team Providers Name Role Phone KOLB Unavailable Unavailable PA-C Unavailable Unavailable Frank Unavailable Unavailable Picco Unavailable Unavailable Shane Unavailable Unavailable Problems date description facility 2012-10-27 07:31 DIAB [place] WO COMPL, TYPE II OR [facility] UNSPEC TYPE, NOT UNCNTRLD 2012-10-27 07:31 BENIGN HYPERTENSION [facility] 2012-10-27 07:31 OTH MED,LT,CURRENT USE [facility] 2018-12-08 09:21 ANEMIA, UNSPECIFIED [facility] 2018-12-08 09:21 OTHER SPECIFIED ABNORMALITIES OF [facility] PLASMA PROTEINS 2020-02-29 00:00:00 MICROALBUMIN/CREAT RATIO [facility] Primary Care [facility] 2020-02-29 00:00:00 TSH WITH REFLEX TO FT4 [facility] 2020-02-29 00:00:00 Other and unspecified [facility] P rimary Care hyperlipidemia [facility] 2020-02-29 00:00:00 Major depressive disorder, [facility] recurrent episode, unspecified [facility] degree 2020-02-29 00:00:00 Rheumatoid arthritis [facility] Pr imary Care [facility] 2020-02-29 00:00:00 COMPREHENSIVE METABOLIC PANEL [facility] 2020-02-29 00:00:00 LIPIDS SCREEN [facility] 2020-02-29 00:00:00 Vitamin D, 25-Hydroxy, Serum [facility] Primary [facility] 2020-02-29 00:00:00 HGBA1C [facility]erg[facility] 2020-02-29 00:00:00 PSA, [facility]ING [facility] 2020-02-[facility] 00:00:00 CBC W/Diff/Plt [facility] 2020-02-29 00:00:00 Sed [facility] 2020-02-29 00:00:00 CRP [facility] 2020-02-29 00:00:00 Hyperlipidemia, unspecified [facility] 2020-02-29 00:00:00 Major depressive disorder, [facility] recurrent, unspecified [facility] 2020-02-29 00:00:00 Rheumatoid arthritis, unspecified [facility] 2020-02-29 00:00:00 Spontaneous [facility]oses [facility] 2020-02-29 00:00:00 [facility] 2020-02-29 00:00:00 Health[facility]related behavior [facility] 2020-02-29 00:00:00 Tobacco use and exposure [facility] 2020-02-29 00:00:00 [facility] 2020-02-29 00:00:00 [facility] 2020-02-29 00:00:00 Petechiae [facility] 2020-02-29 00:00:00 Little interest or pleasure in [facility] doing things? [facility] 2020-02-29 00:00:00 Feeling down, depressed, or [facility] hopeless? [facility] 2020-02-29 00:00:00 Patient Health Questionnaire 2 [facility] item (PHQ2) total score [facility] 2020-02-29 00:00:00 Hyperlipidemia [facility] 2020-02-29 00:00:00 Recurrent major depression [facility] 2020-02-29 00:00:00 How many standard drinks [facility] containing alcohol do you have on a [facility] typical day? 2020-02-29 00:00:00 How often do you have 6 or more [facility] drinks on 1 occasion? [facility] 2020-02-29 00:00:00 Alcohol use [facility] 2020-02-29 00:00:00 Tobacco smoking status [facility] 2020-02-29 00:00:00 Total score? [facility]erg[facility] 2020-03-19 00:00:00 MICROALBUMIN/CREAT RATIO [facility] 2020-03-19 00:00:00 Disorders of bilirubin excretion [facility] 2020-03-19 00:00:00 Elevated sedimentation rate [facility] 2020-03-19 00:00:00 Other abnormal blood chemistry [facility] 2020-03-19 00:00:00 Other nonspecific findings on [facility] examination of blood [facility] 2020-03-19 00:00:00 US ABDOMEN LIMITED [facility] 2020-03-19 00:00:00 Liver Panel [facility]erg[facility] 2020-03-19 00:00:00 Urinalysis with Microscopic Exam, [facility] Culture in Indicated [facility] 2020-03-19 00:00:00 FECAL OCCULT BLOOD (FIT) [facility] 2020-03-19 00:00:00 Ceruloplasmin Merg[facility] 2020-03-19 00:00:00 Tissue Transglutaminase (TTG) [facility] Antibody, IgA [facility] 2020-03-19 00:00:00 LDH Merged [facility] 2020-03-19 00:00:00 Transferrin [facility]erg[facility] 2020-03-19 00:00:00 ILIANA [facility] 2020-[facility]00[facility]:00:00 Antibody to Liver/Kidney Microsome [facility] 2020-03-19 00:00:00 Unspecified jaundice [facility] Pr imary Care [facility] 2020-03-19 00:00:00 Elevated erythrocyte sedimentation [facility] Primary Care rate [facility] 2020-03-19 00:00:00 Abnormal levels of other serum [facility] Primary [facility] enzymes [facility] 2020-03-19 00:00:00 Elevated C-reactive protein (CRP) [facility] 2020-03-19 00:00:00 Unspecified abnormal finding in [facility] Primary [facility] specimens from other organs, [facility] systems and tissues 2020-03-19 00:00:00 Laboratory test result abnormal [facility] 2020-03-19 00:00:00 ESR raised [facility] 2020-03-19 00:00:00 C-reactive protein abnormal [facility] 2020-03-19 00:00:00 Liver enzymes abnormal [facility] 2020-03-19 00:00:00 Increased bilirubin level [facility] 2020-03-19 08:04 ANEMIA, UNSPECIFIED [facility] 2020-03-19 08:04 TYPE 2 DIABETES MELLITUS WITHOUT [facility] COMPLICATIONS 2020-03-19 08:04 VITAMIN D DEFICIENCY, UNSPECIFIED [facility] 2020-03-19 08:04 HYPERLIPIDEMIA, [facility]IFIED [facility] 2020-03-19 08:04 MAJOR DEPRESSIVE DISORDER, SINGLE [facility] EPISODE, UNSPECIFIED 2020-03-19 08:04 ESSENTIAL (PRIMARY) HYPERTENSION [facility] 2020-03-19 08:04 FATTY (CHANGE OF) LIVER, NOT [facility] ELSEWHERE CLASSIFIED 2020-03-19 08:04 OTHER CHRONIC PANCREATITIS [facility] 2020-03-19 08:04 PSORIASIS, UNSPECIFIED [facility] 2020-03-19 08:04 RHEUMATOID ARTHRITIS, UNSPECIFIED [facility] 2020-03-20 00:00:00 COMPREHENSIVE METABOLIC PANEL [facility] 2020-03-20 00:00:00 CBC W/Diff/Plt [facility] 2020-03-20 00:00:00 Sed Rate [facility]erg[facility] 2020-03-20 13:51 ANEMIA, UNSPECIFIED [facility] 2020-03-20 13:51 HYPERLIPIDEMIA, UNSPECIFIED [facility] 2020-03-20 13:51 ESSENTIAL (PRIMARY) HYPERTENSION [facility] 2020-03-20 13:51 FATTY (CHANGE OF) LIVER, NOT [facility] ELSEWHERE CLASSIFIED 2020-03-20 13:51 OTHER CHRONIC PANCREATITIS [facility] 2020-03-20 13:51 UNSPECIFIED JAUNDICE [facility] 2020-03-20 13:51 SPONTANEOUS ECCHYMOSES [facility] 2020-03-20 13:51 ELEVATED ERYTHROCYTE SEDIMENTATION [facility] RATE 2020-03-20 13:51 ABNORMAL LEVELS OF OTHER SERUM [facility] ENZYMES 2020-03-20 13:51 UNSP ABNORMAL FINDING IN SPECIMENS [facility] FROM OTH ORG/TISS 2020-03-20 19:51 OTHER NONTHROMBOCYTOPENIC PURPURA [facility] 2020-03-20 19:51 TYPE 2 DIABETES MELLITUS WITHOUT [facility] COMPLICATIONS 2020-03-20 19:51 DISORDER OF UREA CYCLE METABOLISM, [facility] UNSPECIFIED 2020-03-20 19:51 OTHER DISORDERS OF BILIRUBIN [facility] METABOLISM 2020-03-20 19:51 MAJOR DEPRESSIVE DISORDER, SINGLE [facility] EPISODE, UNSPECIFIED 2020-03-20 19:51 ESSENTIAL (PRIMARY) HYPERTENSION [facility] 2020-03-20 19:51 HEPATIC FAILURE, UNSPECIFIED [facility] WITHOUT COMA 2020-03-20 19:51 OTHER CIRRHOSIS OF LIVER [facility] 2020-03-20 19:51 ACUTE KIDNEY FAILURE, UNSPECIFIED [facility] 2020-03-20 19:[address] 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 [facility] HYPOGLYCEMIC DRUGS 2020-03-21 00:00:00 Other nonthrombocytopenic purpuras [facility] 2020-03-21 00:00:00 Alcohol abuse, [facility] drinking behavior [facility] 2020-03-21 00:00:00 Alcoholic cirrhosis of liver [facility] Primary Care [facility] 2020-03-21 00:00:00 Cirrhosis of liver without mention [facility] Primary Care of alcohol [facility] 2020-03-21 00:00:00 COMPREHENSIVE METABOLIC PANEL [facility] 2020-03-21 00:00:00 CBC W/Diff[facility]Plt [facility] 2020-03-21 00:00:00 Sed [facility] 2020-03-21 00:00:00 Other nonthrombocytopenic purpura i [facility] 2020-03-21 00:00:00 Alcohol abuse, uncomplicated [facility] Primary Care [facility] 2020-03-21 00:00:00 Alcoholic cirrhosis of liver [facility] Primary Care without ascites [facility] 2020-03-21 00:00:00 Unspecified [facility] 2020-03-21 00:00:00 Alcohol [facility] 2020-03-21 00:00:00 Cirrhosis of liver [facility] 2020-03-21 00:00:00 Tobacco use and exposure [facility] 2020-03-21 00:00:00 Never smoker [facility] 2020-03-21 00:00:00 Purpuric disorder [facility] Prim [facility] 2020-03-21 00:00:00 Alcoholic cirrhosis [facility] 2020-03-22 00:00:00 INR [facility] 2020-03-23 08:17 OTHER NONTHROMBOCYTOPENIC PURPURA [facility] 2020-03-23 08:17 ALCOHOLIC CIRRHOSIS OF LIVER [facility] WITHOUT ASCITES 2020-03-23 08:[address] [facility] 2020-03-23 08:17 ELEVATED ERYTHROCYTE SEDIMENTATION [facility] RATE 2020-03-23 08:17 ABNORMAL LEVELS OF OTHER SERUM [facility] ENZYMES 2020-03-23 08:17 ELEVATED C-REACTIVE PROTEIN (CRP) [facility] 2020-03-23 08:17 ABNORMAL FINDING OF BLOOD [facility] CHEMISTRY, UNSPECIFIED 2020-03-23 08:17 UNSP ABNORMAL FINDING IN SPECIMENS [facility] FROM OTH ORG/TISS 2020-03-24 00:00:00 TATYANA FIBROSURE Merged [facility] 2020-03-24 00:00:00 Other specified disorders of liver [facility] 2020-03-24 00:00:00 COMPREHENSIVE METABOLIC PANEL [facility] 2020-03-24 00:00:00 CALCIUM, IONIZED Merged [facility] 2020-03-24 00:00:00 Magnesium (Mg) Merged [facility] 2020-03-24 00:00:00 CBC W/Diff/Plt Merged [facility] 2020-03-24 00:00:00 INR Merged [facility] 2020-03-24 00:00:00 Hypocalcemia Merged [facility] 2020-03-24 00:00:00 Insomnia, unspecified [facility] P [facility]ary [facility] 2020-03-24 00:00:00 Other specified diseases of liver [facility] 2020-03-24 00:00:00 Spontaneous ecchymoses [facility] 2020-03-24 00:00:00 Abnormal coagulation profile [facility] 2020-03-24 00:00:00 Insomnia [facility]erged [facility] 2020-03-24 00:00:00 Petechiae Merged [facility] 2020-03-24 00:00:00 Liver mass Merged [facility] 2020-03-24 00:00:00 INR raised [facility] 2020-03-25 00:00:00 Disorders of magnesium metabolism [facility] 2020-03-25 00:00:00 COMPREHENSIVE METABOLIC PANEL [facility] 2020-03-25 00:00:00 Magnesium (Mg) Merged [facility] 2020-03-25 00:00:00 CBC W/Diff/Plt [facility] 2020-03-25 00:00:00 INR Merged [facility] 2020-03-25 00:00:00 Hypomagnesemia Merged [facility] 2020-03-25 11:22 ANEMIA, UNSPECIFIED [facility] 2020-03-25 11:22 TYPE 2 DIABETES MELLITUS WITHOUT [facility] COMPLICATIONS 2020-03-25 11:22 HYPERLIPIDEMIA, UNSPECIFIED [facility] 2020-03-25 11:22 HYPOCALCEMIA [facility] Medic [facility] 2020-03-25 11:22 ESSENTIAL (PRIMARY) HYPERTENSION [facility] 2020-03-25 11:22 UNSPECIFIED CIRRHOSIS OF LIVER [facility] 2020-03-25 11:22 FATTY (CHANGE OF) LIVER, NOT [facility] ELSEWHERE CLASSIFIED 2020-03-25 11:22 OTHER CHRONIC PANCREATITIS [facility] 2020-03-25 11:22 UNSPECIFIED JAUNDICE [facility] 2020-03-25 11:22 SPONTANEOUS ECCHYMOSES [facility] 2020-03-25 11:22 ABNORMAL LEVELS OF OTHER SERUM [facility] ENZYMES 2020-03-25 11:22 ABNORMAL COAGULATION PROFILE [facility] 2020-03-25 11:22 ELEVATED C-REACTIVE PROTEIN (CRP) [facility] 2020-03-25 11:22 UNSP ABNORMAL FINDING IN SPECIMENS [facility] FROM OTH ORG/TISS 2020-03-26 00:00:00 COMPREHENSIVE METABOLIC PANEL [facility] 2020-03-26 00:00:00 Magnesium (Mg) Merged [facility] 2020-03-26 00:00:00 CBC W/Diff/Plt Merged [facility] 2020-03-26 00:00:00 INR Merged [facility] 2020-03-29 09:06 ANEMIA, UNSPECIFIED [facility] 2020-03-29 09:06 TYPE 2 DIABETES MELLITUS WITHOUT [facility] COMPLICATIONS 2020-03-29 09:06 HYPERLIPIDEMIA, UNSPECIFIED [facility] 2020-03-29 09:06 HYPOMAGNESEMIA [facility] 2020-03-29 09:06 ESSENTIAL (PRIMARY) HYPERTENSION [facility] 2020-03-29 09:06 UNSPECIFIED CIRRHOSIS OF LIVER [facility] 2020-03-29 09:06 FATTY (CHANGE OF) LIVER, NOT [facility] ELSEWHERE CLASSIFIED 2020-03-29 09:06 OTHER CHRONIC PANCREATITIS [facility] 2020-03-29 09:[address] [facility] 2020-03-29 09:06 SPONTANEOUS ECCHYMOSES [facility] 2020-03-29 09:06 ELEVATED ERYTHROCYTE SEDIMENTATION [facility] RATE 2020-03-29 09:06 ABNORMAL LEVELS OF OTHER SERUM [facility] ENZYMES 2020-03-29 09:06 ABNORMAL COAGULATION PROFILE [facility] 2020-03-29 09:06 ELEVATED C-REACTIVE PROTEIN (CRP) [facility] 2020-03-29 09:06 UNSP ABNORMAL FINDING IN SPECIMENS [facility] FROM OTH ORG/TISS 2020-03-31 00:00:00 COMPREHENSIVE METABOLIC PANEL [facility] 2020-03-31 00:00:00 Magnesium (Mg) Merged [facility] 2020-03-31 00:00:00 CBC W/Diff/Plt [facility]erg[facility] 2020-03-31 00:00:00 INR Merged [facility] 2020-03-31 00:00:00 Tobacco use and exposure [facility] 2020-03-31 00:00:00 Exercise Merged [facility] 2020-03-31 00:00:00 Never smoker [facility] 2020-04-01 08:38 HYPOMAGNESEMIA [facility] [place] 2020-04-01 08:38 HYPOCALCEMIA [facility] [place] 2020-04-01 08:38 SPONTANEOUS ECCHYMOSES [facility] 2020-04-01 08:38 ABNORMAL COAGULATION PROFILE [facility] 2020-04-07 00:00:00 COMPREHENSIVE METABOLIC PANEL [facility] 2020-04-07 00:00:00 Magnesium (Mg) Merged [facility] 2020-04-07 00:00:00 CBC W/Diff/Plt Merged [facility] 2020-04-07 00:00:00 INR Merged [facility] 2020-04-09 00:00:00 AFP TUMOR MARKER (NON MATERNAL) [facility] 2020-04-09 00:00:00 Viral [place]/Load HCV Merged with [facility] 2020-04-12 09:31 HYPOMAGNESEMIA [facility] [place] 2020-04-12 09:31 UNSPECIFIED CIRRHOSIS OF LIVER [facility] 2020-04-12 09:31 OTHER SPECIFIED DISEASES OF LIVER [facility] 2020-04-12 09:31 ABNORMAL COAGULATION PROFILE [facility] 2020-04-15 00:00:00 COMPREHENSIVE METABOLIC PANEL [facility] 2020-04-15 00:00:00 LIPIDS SCREEN [facility]erged [facility] 2020-04-15 00:00:00 Magnesium (Mg) Merged [facility] 2020-04-15 00:00:00 CBC W/Diff/Plt [facility]erg[facility] 2020-04-15 00:00:00 INR Merged [facility] Allergies date description facility CODEINE [facility] PROCAINE HCL [facility] PENICILLINS [facility] NO ALLERGY INFORMATION AVAILABLE [facility] CLARITHROMYCIN [facility] G[facility]APENTIN [facility] LOSARTAN [facility]EDIPINE [facility] PREDNISONE [facility] TERFENADINE [facility] TETANUS TOXOIDS [facility] PENICILLINS [facility] IODINATED CONTRAST MEDIA [facility] NIACIN [facility] APIXABAN [facility] ETHYL ALCOHOL [facility] BACLOFEN [facility] KETOROLAC [facility] HYDROXYCHLOROQUINE [facility] BEE VENOM PROTEIN (HONEY BEE) [facility] BEE POLLEN [facility] ERYTHROMYCIN [facility] ONDANSETRON HCL (PF) [facility] Med ical [place] HYDROCODONE-ACETAMINOPHEN [facility] CALCIUM CARBONATE-MAG [facility] No Known Drug Allergies [facility] Medications date description facility 2020-02-29 00:00:00 null [facility] 2020-02-29 00:00:00 null [facility] 2020-02-29 00:00:00 null [facility] 2020-02-29 00:00:00 null [facility] 2020-02-29 00:00:00 null [facility] [place] 2020-02-29 00:00:00 null [facility] [place] 2020-02-29 00:00:00 null [facility] [place] 2020-02-29 00:00:00 null [facility] 2020-02-29 00:00:00 null [facility] [place] 2020-02-29 00:00:00 null [facility] [place] 2020-02-29 00:00:00 null [facility] [place] 2020-02-29 00:00:00 null [facility] [place] 2020-02-29 00:00:00 null [facility] [place] 2020-02-29 00:00:00 null [facility] [place] 2020-02-29 00:00:00 null [facility] 2020-02-29 00:00:00 null [facility] [place] 2020-02-29 00:00:00 LOSARTAN POTASSIUM [facility] [place] 2020-02-29 00:00:00 BUPROPION HCL [facility] [place] 2020-02-29 00:00:00 TRIAMCINOLONE ACETONIDE [facility] 2020-02-29 00:00:00 B COMPLEX VITAMINS [facility] [place] 2020-02-29 00:00:00 ASCORBIC ACID [facility] 2020-02-29 00:00:00 CINNAMON [facility] 2020-02-29 00:00:00 OMEGA-3 FATTY ACIDS [facility] 2020-02-29 00:00:00 MULTIPLE VITAMIN [facility] 2020-02-29 00:00:00 null [facility] 2020-02-29 00:00:00 null [facility] 2020-02-29 00:00:00 TRIAMCINOLONE ACETONIDE [facility] 2020-02-29 00:00:00 B COMPLEX VITAMINS [facility] 2020-02-29 00:00:00 ASCORBIC ACID [facility] 2020-02-29 00:00:00 CINNAMON [facility] 2020-02-29 00:00:00 LOSARTAN POTASSIUM [facility] 2020-02-29 00:00:00 BUPROPION HCL [facility] 2020-03-21 00:00:00 null [facility] 2020-03-21 00:00:00 null [facility] 2020-03-21 00:00:00 LACTULOSE [facility] 2020-03-21 00:00:00 LACTULOSE [facility] 2020-03-24 00:00:00 null [facility] 2020-03-24 00:00:00 null [facility] 2020-03-24 00:00:00 null [facility] 2020-03-24 00:00:00 null [facility] 2020-03-24 00:00:00 TRAZODONE HCL [facility] [place] 2020-03-24 00:00:00 CALCIUM-VITAMIN D-VITAMIN K [facility] [place] [facility] 2020-03-24 00:00:00 [facility]ODONE [facility] [place] [facility] 2020-03-31 00:00:00 null [facility] [place] 2020-03-31 00:00:00 null [facility] [place] 2020-03-31 00:00:00 null [facility] [place] 2020-03-31 00:00:00 null [facility] 2020-03-31 00:00:00 MAGNESIUM OXIDE [facility] [place] 2020-03-31 00:00:00 MAGNESIUM CL-CALCIUM CARBONATE [facility] [place] [facility] 2020-03-31 00:00:00 [facility]IDE [facility] [place] [facility] Procedures date description facility 2020-02-29 00:00:00 MICROALBUMIN/CREAT RATIO [facility] [place] [facility] date description facility 2020-02-29 00:00:00 TSH WITH REFLEX TO FT4 [facility] [place] [facility] date description facility 2020-02-29 00:00:00 COMPREHENSIVE METABOLIC PANEL [facility] [place] [facility] date description facility 2020-02-29 00:00:00 LIPIDS [facility]CREEN [facility] [place] [facility] date description facility 2020-02-29 00:00:00 Vitamin D, 25-Hydroxy, Serum [facility] [place] [facility] date description facility 2020-02-29 00:00:00 [facility]C [facility] [place] [facility] date description facility 2020-02-29 00:00:00 PSA, SCREENING [facility] [place] [facility] date description facility 2020-02-29 00:00:00 [facility] [place] [facility] date description facility 2020-02-29 00:00:00 Sed Rate [facility] [place] [facility] date description facility 2020-02-29 00:00:00 [facility] [place] [facility] date description facility 2020-02-29 00:00:00 First Ix admin via ID IM or [facility] jet injects with counseling by [facility] physician for adult date description facility 2020-02-29 00:00[facility] [place] [facility] date description facility 2020-03-19 00:00:00 MICROALBUMIN/[facility]AT [facility] [place] [facility] date description facility 2020-03-19 00:00:00 US ABDOMEN LIMITED [facility] [place] [facility] date description facility 2020-03-19 00:00:00 [facility] date description facility 2020-03-19 00:00:00 Urinalysis with Microscopic [facility] Exam, Culture in Indicated [facility] date description facility 2020-03-19 00:00:00 FECAL OCCULT BLOOD (FIT) [facility] [place] [facility] date description facility 2020-03-19 00:00:00 Ceruloplasmin [facility] Prim trino [facility] date description facility 2020-03-19 00:00:00 Tissue Transglutaminase (TTG) [facility] Primary [facility] Antibody, IgA [facility] date description facility 2020-03-19 00:00:00 LDH [facility] [place] [facility] date description facility 2020-03-19 00:00:00 [facility]in [facility] date description facility 2020-03-19 00:00:00 ILIANA with REFLEX [facility] date description facility 2020-03-19 00:00:00 [facility]SIAL AB [facility] [place] [facility] date description facility 2020-03-19 00:00:00 Antibody to Liver/Kidney [facility] [place] [facility] date description facility 2020-03-19 00:00[facility] [place] [facility] date description facility 2020-03-20 00:00:00 COMPREHENSIVE METABOLIC PANEL [facility] [place] [facility] date description facility 2020-03-20 00:00:00 CBC W/Diff/Plt [facility] [place] [facility] date description facility 2020-03-20 00:00:00 Sed Rate [facility] [place] [facility] date description facility 2020-03-20 00:00:00 [facility] [place] [facility] date description facility 2020-03-21 00:00:00 COMPREHENSIVE METABOLIC PANEL [facility] [place] [facility] date description facility 2020-03-21 00:00:00 CBC W/Diff/Plt [facility] [place] [facility] date description facility 2020-03-21 00:00:00 Sed Rate [facility] [place] [facility] date description facility 2020-03-21 00:00:00 [facility] [place] [facility] date description facility 2020-03-22 00:00:00 INR [facility] [place] [facility] date description facility 2020-03-22 00:00:00 [facility] [place] [facility] date description facility 2020-03-24 00:00:00 TATYANA FIBROSURE [facility] [place] [facility] date description facility 2020-03-24 00:00:00 COMPREHENSIVE METABOLIC PANEL [facility] [place] [facility] date description facility 2020-03-24 00:00:00 CALCIUM, IONIZED [facility] [place] [facility] date description facility 2020-03-24 00:00:00 Magnesium (Mg) [facility] [place] [facility] date description facility 2020-03-24 00:00:00 CBC W/Diff/Plt [facility] [place] [facility] date description facility 2020-03-24 00:00:00 INR [facility] [place] [facility] date description facility 2020-03-24 00:00:00 [facility] [place] [facility] date description facility 2020-03-25 00:00:00 COMPREHENSIVE METABOLIC PANEL [facility] [place] [facility] date description facility 2020-03-25 00:00:00 Magnesium (Mg) [facility] [place] [facility] date description facility 2020-03-25 00:00:00 CBC W/Diff/Plt [facility] [place] [facility] date description facility 2020-03-25 00:00:00 INR [facility] [place] [facility] date description facility 2020-03-25 00:00:00 [facility] [place] [facility] date description facility 2020-03-26 00:00:00 COMPREHENSIVE METABOLIC PANEL [facility] [place] [facility] date description facility 2020-03-26 00:00:00 Magnesium (Mg) [facility] [place] [facility] date description facility 2020-03-26 00:00:00 CBC W/Diff/Plt [facility] [place] [facility] date description facility 2020-03-26 00:00:00 INR [facility] [place] [facility] date description facility 2020-03-26 00:00:00 [facility] [place] [facility] date description facility 2020-03-31 00:00:00 COMPREHENSIVE METABOLIC PANEL [facility] [place] [facility] date description facility 2020-03-31 00:00:00 Magnesium (Mg) [facility] [place] [facility] date description facility 2020-03-31 00:00:00 CBC W/Diff/Plt [facility] [place] [facility] date description facility 2020-03-31 00:00:00 INR [facility] [place] [facility] date description facility 2020-03-31 00:00:00 [facility] [place] [facility] date description facility 2020-04-07 00:00:00 COMPREHENSIVE METABOLIC PANEL [facility] [place] [facility] date description facility 2020-04-07 00:00:00 Magnesium (Mg) [facility] [place] [facility] date description facility 2020-04-07 00:00:00 CBC W/Diff/Plt [facility] [place] [facility] date description facility 2020-04-07 00:00:00 INR [facility] [place] [facility] date description facility 2020-04-07 00:00:00 [facility] [place] [facility] date description facility 2020-04-09 00:00:00 AFP TUMOR MARKER (NON [facility] [place] [facility] date description facility 2020-04-09 00:00:00 Viral [place]/Load HCV [facility] [place] [facility] date description facility 2020-04-09 00:00:00 [facility] [place] [facility] Results Social History date description facility 2020-02-29 00:00:00 Never smoker [facility] [place] [facility] date description facility 2020-03-21 00:00:00 Never smoker [facility] [place] [facility] date description facility 2020-03-31 00:00:00 Never smoker [facility] [place] [facility] Social History date description facility 2020-02-29 00:00:00 Never smoker [facility] [place] [facility] date description facility 2020-03-21 00:00:00 Never smoker [facility] [place] [facility] date description facility 2020-03-31 00:00:00 Never smoker [facility] [place] [facility] date description facility [phone]
[2020-04-18 08:56] LABS: HCV RNA QUANT RT PCR <15 NOT DETECTED IU/mL
== END 2020-04-12 09:32 | disposition home or self-care (01) ==
LOC: LAB.S 09:31
PROVIDERS: ATTEND Internal Medicine
DX: E83.42 Hypomagnesemia (principal); K74.60 Unspecified cirrhosis of liver; R79.1 Abnormal coagulation profile; R16.0 Hepatomegaly, not elsewhere classified
CPT/HCPCS: 36415; 80053; 82105; 83735; 85025; 85610; 87522

== ENCOUNTER 2020-04-22 07:24 | Outpatient (CLI) | payer MEDICAID ==
[2020-04-22 16:03] LABS: BASOPHILS # (AUTO) 0.1 10^3/uL (0.0-0.1); BASOPHILS % (AUTO) 0.9 %; EOSINOPHILS # (AUTO) 0.3 10^3/uL (0.0-0.7); EOSINOPHILS % (AUTO) 4.3 %; HGB - HEMOGLOBIN 10.4 g/dL (14.0-18.0); LYMPHOCYTES # (AUTO) 3.1 10^3/uL (1.5-3.5); LYMPHOCYTES % (AUTO) 39.5 %; MEAN CORPUSCULAR HEMOGLOBIN 39.1 pg (27.0-31.0); MEAN CORPUSCULAR HGB CONC 35.9 g/dL (32.0-36.0); MEAN PLATELET VOLUME 11.4 fL (7.4-11.4); MONOCYTES # (AUTO) 0.9 10^3/uL (0.0-1.0); MONOCYTES % (AUTO) 10.9 %; NEUTROPHILS # (AUTO) 3.5 10^3/uL (1.5-6.6); NEUTROPHILS % (AUTO) 44.1 %; PLT - PLATELET COUNT 119 10^3/uL (130-450); RED BLOOD COUNT 2.66 10^6/uL (4.70-6.10); WHITE BLOOD COUNT 7.8 x10^3/uL (4.8-10.8)
[2020-04-22 16:14] LABS: INR > 10.0 (0.8-1.2); PT - PROTHROMBIN TIME > 120.0 secs (9.9-12.6)
[2020-04-22 17:53] LABS: ALBUMIN 2.8 g/dL (3.2-5.5); ALBUMIN/GLOBULIN RATIO 0.6 (1.0-2.2); ALKALINE PHOSPHATASE 264 IU/L (42-121); ALT ALANINE AMINOTRANSFERASE 34 IU/L (10-60); AST ASPARTATE AMINOTRANSFERASE 53 IU/L (10-42); BILIRUBIN,TOTAL 3.2 mg/dL (0.2-1.0); BUN - BLOOD UREA NITROGEN 8 mg/dL (6-20); CALCIUM 8.9 mg/dL (8.5-10.3); CARBON DIOXIDE - CO2 22 mmol/L (21-32); CHLORIDE 100 mmol/L (101-111); CHOL/HDL RATIO 6.7 (<5.0); CHOLESTEROL 200 mg/dL; CREATININE 0.7 mg/dL (0.6-1.2); GLUCOSE 263 mg/dL (70-100); HDL CHOLESTEROL 30 mg/dL; LDL CHOLESTEROL,CALCULATED 137 mg/dL; LDL/HDL RATIO 4.6 (<3.6); MAGNESIUM 1.7 mg/dL (1.7-2.8); SODIUM 132 mmol/L (135-145); TOTAL PROTEIN 7.4 g/dL (6.7-8.2); VLDL CHOLESTEROL 33 mg/dL
== END 2020-04-22 07:25 | disposition home or self-care (01) ==
LOC: LAB.S 07:24
PROVIDERS: ATTEND Internal Medicine
DX: K74.60 Unspecified cirrhosis of liver (principal); E83.42 Hypomagnesemia; R79.1 Abnormal coagulation profile
CPT/HCPCS: 36415; 80053; 80061; 83721; 83735; 85025; 85610

== ENCOUNTER 2020-04-23 13:52 | Outpatient (CLI) | payer MEDICAID ==
[2020-04-23 20:51] LABS: INR 1.6 (0.8-1.2); PT - PROTHROMBIN TIME 17.5 secs (9.9-12.6)
== END 2020-04-23 13:53 | disposition home or self-care (01) ==
LOC: LAB.S 13:52
PROVIDERS: ATTEND Internal Medicine
DX: R79.1 Abnormal coagulation profile (principal)
CPT/HCPCS: 36415; 85610

== ENCOUNTER 2020-04-23 16:31 | Outpatient (CLI) | payer MEDICAID | END 2020-04-23 16:32 | disposition home or self-care (01) | LOC: LAB.S 16:31 | PROVIDERS: ATTEND Internal Medicine | DX: K70.30 Alcoholic cirrhosis of liver without ascites (principal); R79.1 Abnormal coagulation profile | CPT/HCPCS: 36415; 85610 ==

== ENCOUNTER 2020-05-18 15:54 | Outpatient (CLI) | payer MEDICAID ==
[2020-05-18 16:57] LABS: BASOPHILS # (AUTO) 0.1 10^3/uL (0.0-0.1); BASOPHILS % (AUTO) 0.8 %; EOSINOPHILS # (AUTO) 0.2 10^3/uL (0.0-0.7); EOSINOPHILS % (AUTO) 2.1 %; LYMPHOCYTES # (AUTO) 4.1 10^3/uL (1.5-3.5); LYMPHOCYTES % (AUTO) 55.1 %; MEAN CORPUSCULAR HEMOGLOBIN 37.9 pg (27.0-31.0); MEAN CORPUSCULAR HGB CONC 34.7 g/dL (32.0-36.0); MEAN CORPUSCULAR VOLUME 109.1 fL (80.0-94.0); MEAN PLATELET VOLUME 11.7 fL (7.4-11.4); MONOCYTES # (AUTO) 0.7 10^3/uL (0.0-1.0); MONOCYTES % (AUTO) 9.9 %; NEUTROPHILS # (AUTO) 2.4 10^3/uL (1.5-6.6); PLT - PLATELET COUNT 140 10^3/uL (130-450); RED BLOOD COUNT 3.17 10^6/uL (4.70-6.10); RED CELL DISTRIBUTION WIDTH 15.2 % (12.0-15.0); WHITE BLOOD COUNT 7.5 x10^3/uL (4.8-10.8)
[2020-05-18 16:59] LABS: INR 1.8 (0.8-1.2); PT - PROTHROMBIN TIME 19.2 secs (9.9-12.6)
[2020-05-18 17:06] LABS: ALBUMIN 3.1 g/dL (3.2-5.5); ALBUMIN/GLOBULIN RATIO 0.6 (1.0-2.2); BILIRUBIN,TOTAL 5.1 mg/dL (0.2-1.0); CALCIUM 9.5 mg/dL (8.5-10.3); CREATININE 0.9 mg/dL (0.6-1.2); MAGNESIUM 1.6 mg/dL (1.7-2.8); TOTAL PROTEIN 8.2 g/dL (6.7-8.2)
== END 2020-05-18 15:55 | disposition home or self-care (01) ==
LOC: LAB.S 15:54
PROVIDERS: ATTEND Internal Medicine
DX: E83.42 Hypomagnesemia (principal); R79.1 Abnormal coagulation profile; K70.30 Alcoholic cirrhosis of liver without ascites
CPT/HCPCS: 36415; 80053; 83735; 85025; 85610

== ENCOUNTER 2020-05-22 13:37 | Outpatient (CLI) | payer MEDICAID ==
[2020-05-22 20:11] LABS: BASOPHILS # (AUTO) 0.1 10^3/uL (0.0-0.1); BASOPHILS % (AUTO) 0.6 %; EOSINOPHILS # (AUTO) 0.1 10^3/uL (0.0-0.7); EOSINOPHILS % (AUTO) 1.7 %; HGB - HEMOGLOBIN 10.2 g/dL (14.0-18.0); LYMPHOCYTES # (AUTO) 2.9 10^3/uL (1.5-3.5); LYMPHOCYTES % (AUTO) 34.4 %; MEAN CORPUSCULAR HEMOGLOBIN 37.5 pg (27.0-31.0); MEAN CORPUSCULAR HGB CONC 33.7 g/dL (32.0-36.0); MEAN CORPUSCULAR VOLUME 111.4 fL (80.0-94.0); MEAN PLATELET VOLUME 12.3 fL (7.4-11.4); MONOCYTES # (AUTO) 0.9 10^3/uL (0.0-1.0); NEUTROPHILS # (AUTO) 4.4 10^3/uL (1.5-6.6); NEUTROPHILS % (AUTO) 52.1 %; PLT - PLATELET COUNT 100 10^3/uL (130-450); RED BLOOD COUNT 2.72 10^6/uL (4.70-6.10); RED CELL DISTRIBUTION WIDTH 15.5 % (12.0-15.0); WHITE BLOOD COUNT 8.5 x10^3/uL (4.8-10.8)
[2020-05-22 20:16] LABS: ALBUMIN/GLOBULIN RATIO 0.6 (1.0-2.2); CALCIUM 9.2 mg/dL (8.5-10.3); CREATININE 0.8 mg/dL (0.6-1.2); TOTAL PROTEIN 7.9 g/dL (6.7-8.2)
[2020-05-22 20:37] LABS: PLATELET ESTIMATE, MANUAL DECREASED (<130,000) (NORMAL); PLATELET MORPHOLOGY 1+ GIANT PLATELETS (NORMAL)
== END 2020-05-22 13:38 | disposition home or self-care (01) ==
LOC: LAB.S 13:37
PROVIDERS: ATTEND Internal Medicine
DX: I10 Essential (primary) hypertension (principal); R79.1 Abnormal coagulation profile
CPT/HCPCS: 36415; 80053; 85025; 85610

== ENCOUNTER 2020-05-23 08:00 | Outpatient (CLI) | payer MEDICAID ==
[2020-05-23 08:42] LABS: BASOPHILS # (AUTO) 0.1 10^3/uL (0.0-0.1); BASOPHILS % (AUTO) 0.9 %; EOSINOPHILS # (AUTO) 0.3 10^3/uL (0.0-0.7); EOSINOPHILS % (AUTO) 3.9 %; HGB - HEMOGLOBIN 10.7 g/dL (14.0-18.0); LYMPHOCYTES # (AUTO) 3.5 10^3/uL (1.5-3.5); LYMPHOCYTES % (AUTO) 43.2 %; MEAN CORPUSCULAR HEMOGLOBIN 38.6 pg (27.0-31.0); MEAN CORPUSCULAR HGB CONC 35.2 g/dL (32.0-36.0); MEAN CORPUSCULAR VOLUME 109.7 fL (80.0-94.0); MEAN PLATELET VOLUME 11.1 fL (7.4-11.4); MONOCYTES # (AUTO) 0.8 10^3/uL (0.0-1.0); NEUTROPHILS # (AUTO) 3.4 10^3/uL (1.5-6.6); NEUTROPHILS % (AUTO) 41.8 %; PLT - PLATELET COUNT 113 10^3/uL (130-450); RED BLOOD COUNT 2.77 10^6/uL (4.70-6.10); RED CELL DISTRIBUTION WIDTH 14.9 % (12.0-15.0); WHITE BLOOD COUNT 8.2 x10^3/uL (4.8-10.8)
[2020-05-23 08:54] LABS: ALBUMIN/GLOBULIN RATIO 0.6 (1.0-2.2); BILIRUBIN,TOTAL 4.7 mg/dL (0.2-1.0); CALCIUM 9.5 mg/dL (8.5-10.3); CREATININE 0.9 mg/dL (0.6-1.2); TOTAL PROTEIN 7.7 g/dL (6.7-8.2)
== END 2020-05-23 23:59 | disposition home or self-care (01) ==
LOC: LAB 08:00
PROVIDERS: ATTEND Surgery
DX: Z01.812 Encounter for preprocedural laboratory examination (principal); K70.30 Alcoholic cirrhosis of liver without ascites; Z12.11 Encounter for screening for malignant neoplasm of colon; Z20.822 Contact with and (suspected) exposure to COVID-19
CPT/HCPCS: 36415; 80053; 85025

== ENCOUNTER 2020-05-26 11:11 | Outpatient (CLI) | payer MEDICAID ==
[2020-05-26 15:00] LABS: ALBUMIN 3.1 g/dL (3.2-5.5); ALBUMIN/GLOBULIN RATIO 0.7 (1.0-2.2); BASOPHILS # (AUTO) 0.1 10^3/uL (0.0-0.1); BASOPHILS % (AUTO) 0.9 %; BILIRUBIN,TOTAL 4.1 mg/dL (0.2-1.0); CALCIUM 9.2 mg/dL (8.5-10.3); CREATININE 0.8 mg/dL (0.6-1.2); EOSINOPHILS # (AUTO) 0.3 10^3/uL (0.0-0.7); EOSINOPHILS % (AUTO) 3.7 %; HGB - HEMOGLOBIN 10.8 g/dL (14.0-18.0); LYMPHOCYTES # (AUTO) 2.9 10^3/uL (1.5-3.5); LYMPHOCYTES % (AUTO) 41.2 %; MEAN CORPUSCULAR HEMOGLOBIN 38.2 pg (27.0-31.0); MEAN CORPUSCULAR HGB CONC 34.6 g/dL (32.0-36.0); MEAN CORPUSCULAR VOLUME 110.2 fL (80.0-94.0); MEAN PLATELET VOLUME 12.4 fL (7.4-11.4); MONOCYTES # (AUTO) 0.9 10^3/uL (0.0-1.0); MONOCYTES % (AUTO) 12.5 %; NEUTROPHILS # (AUTO) 2.9 10^3/uL (1.5-6.6); NEUTROPHILS % (AUTO) 41.4 %; PLT - PLATELET COUNT 107 10^3/uL (130-450); RED BLOOD COUNT 2.83 10^6/uL (4.70-6.10); TOTAL PROTEIN 7.6 g/dL (6.7-8.2); WHITE BLOOD COUNT 6.9 x10^3/uL (4.8-10.8)
[2020-05-26 15:04] LABS: INR 1.7 (0.8-1.2); PT - PROTHROMBIN TIME 18.2 secs (9.9-12.6)
[2020-05-26 15:27] LABS: PLATELET ESTIMATE, MANUAL DECREASED (<130,000) (NORMAL); PLATELET MORPHOLOGY NORMAL APPEARANCE (NORMAL); RBC MORPHOLOGY (MULTIPLE) NORMAL APPEARANCE (NORMAL)
== END 2020-05-26 11:12 | disposition home or self-care (01) ==
LOC: LAB.S 11:11
PROVIDERS: ATTEND Internal Medicine
DX: D64.9 Anemia, unspecified (principal)
CPT/HCPCS: 36415; 80053; 82728; 85025; 85610

== ENCOUNTER 2020-05-27 08:42 | Day surgery (SDC) | payer MEDICAID ==
[~2020-05-27 08:42] MED LIST: SODIUM/POTASSIUM/MAG SULFATES 354 ML PREP KIT PO SCH
[2020-05-27] MEDS ORDERED: LACTATED RINGERS 1,000 ML IV ONE ×2 (09:19→12:58)
--- NOTE | 2020-05-27 11:17 | ANESTHESIA ---
Pre-Anesthesia VS, & Labs - Diagnosis screening, ETOH cirrhosis - Procedure EGD/Cscope Vital Signs: Temp Pulse Resp BP Pulse Ox 36.0 C L 75 16 131/87 H 100 05/27/20 09:00 05/27/20 09:00 05/27/20 09:00 05/27/20 09:00 05/27/20 09:00 Height: 5 ft 8 in Weight (kg): 60 kg Body Mass Index: 20.1 BMI Classification: Healthy weight - NPO >8 hours - Lab Results Current Lab Results: Laboratory Tests 05/27/20 09:10: POC Whole Bld Glucose 208 H Home Medications and Allergies Home Medications: Ambulatory Orders Magnesium Chloride 70 mg PO BID 05/22/20 Magnesium Oxide [Magnesium] 1,200 mg PO DAILY 05/22/20 Triamcinolone 0.5% Cream [Kenalog 0.5% Cream] 1 applic TOP BID PRN 05/22/20 traZODone [Desyrel] 50 mg PO HS 05/22/20 Losartan Potassium 25 mg PO DAILY 03/21/20 buPROPion [Wellbutrin Xl] 150 mg PO DAILY 03/21/20 metFORMIN [Glucophage] 1,000 mg PO BID 03/21/20 Magnesium Chloride 70 mg PO BID 05/22/20 Magnesium Oxide [Magnesium] 1,200 mg PO DAILY 05/22/20 Triamcinolone 0.5% Cream [Kenalog 0.5% Cream] 1 applic TOP BID PRN 05/22/20 traZODone [Desyrel] 50 mg PO HS 05/22/20 Allergies/Adverse Reactions: Allergies Allergy/AdvReac Type Severity Reaction Status Date / Time No Known Drug Allergies Allergy Verified 03/20/20 15:57 Anes History & Medical History - Anesthetic History Anesthesia Complications: reports: No previous complications Family history of Anesthesia Complications: Denies Family history of Malignant Hyperthermia: Denies - Medical History Cardiovascular: reports: Hypertension Pulmonary: reports: None Gastrointestinal: reports: Cirrhosis, Other Urinary: reports: None Musculoskeletal: reports: None Endocrine/Autoimmune: reports: Type 2 diabetes Skin: reports: Psoriasis Smoking Status: Current every day smoker - Surgical History 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 Nose Throat (EENT): reports: Other Orthopedic: reports: Other Exam General: Alert, Oriented x3, Cooperative Dental: WNL Mouth Openin Fingerbreadth Neck Mobility: Normal Mallampati classification: II Thyromental Distance: 4-6 cm Respiratory: Lungs clear, Normal breath sounds, No respiratory distress Cardiovascular: Regular rate Neurological: Normal speech Mental/Cognitive Status: Alert/Oriented X3, Normal for patient Cognitive Status: Within normal limits Plan Anesthesia Type: MAC Consent for Procedure(s) Verified and Reviewed: Yes Code Status: Attempt Resuscitation ASA classification: 2-Mild systemic disease Is this case an emergency?: No
[2020-05-27] MEDS ORDERED: LIDO GARGLE 30 ML BOTTLE ONE (11:47)
[2020-05-27] MEDS ORDERED: PROPOFOL 200 MG/20 ML VIAL IVP ONE ×2 (11:48→12:37)
[2020-05-27] MEDS ORDERED: fentaNYL 100 MCG/2 ML VIAL ONE (11:48)
[2020-05-27] MEDS ORDERED: MIDAZOLAM 2 MG/2 ML VIAL ONE (11:48)
[2020-05-27] MEDS ORDERED: LIDOCAINE-MPF 2% 5 ML VIAL ONE (11:48)
[2020-05-27] MEDS ORDERED: LACTATED RINGERS 200 ML IV ONE (12:39)
[2020-05-27 13:25] VITALS: BP 122/83
--- NOTE | 2020-05-27 13:50 | ANESTHESIA POST OP EVALUATION ---
Anesthesia Post Eval - Post Anesthesia Eval Vitals: Last Vital Signs Temp 36.0 C L 05/27/20 13:24 Pulse 73 05/27/20 13:24 Resp 16 05/27/20 13:24 BP 122/83 H 05/27/20 13:24 Pulse Ox 99 05/27/20 13:24 CV Function Including HR & BP: positive: Stable Pain Control: positive: Satisfactory Nausea & Vomiting: positive: Negative Mental Status: positive: Baseline Respiratory Status: Airway Patent Hydration Status: Satisfactory Anesthesia Complications: positive: None
== END 2020-05-27 08:43 | disposition home or self-care (01) ==
LOC: SDS 08:42
PROVIDERS: ATTEND Surgery
PROC: 0DBK8ZZ Excision of Ascending Colon, Via Natural or Artificial Opening Endoscopic (ICD-10-PCS; principal; 2020-05-27 07:30)
PROC: 0DB68ZX Excision of Stomach, Via Natural or Artificial Opening Endoscopic, Diagnostic (ICD-10-PCS; 2020-05-27 07:30)
DX: D64.9 Anemia, unspecified (principal); D12.2 Benign neoplasm of ascending colon; K57.30 Diverticulosis of large intestine without perforation or abscess without bleeding; K63.89 Other specified diseases of intestine; K64.8 Other hemorrhoids; K31.1 Adult hypertrophic pyloric stenosis; K29.70 Gastritis, unspecified, without bleeding; J38.3 Other diseases of vocal cords; K70.30 Alcoholic cirrhosis of liver without ascites; F10.10 Alcohol abuse, uncomplicated; E11.9 Type 2 diabetes mellitus without complications; I10 Essential (primary) hypertension; E78.5 Hyperlipidemia, unspecified; M06.9 Rheumatoid arthritis, unspecified; F33.9 Major depressive disorder, recurrent, unspecified; F41.8 Other specified anxiety disorders; E55.9 Vitamin D deficiency, unspecified; L40.9 Psoriasis, unspecified; Z79.84 Long term (current) use of oral hypoglycemic drugs; Z79.899 Other long term (current) drug therapy; Z90.81 Acquired absence of spleen
CPT/HCPCS: 43239; 43245; 45384; A9270; J7120

== ENCOUNTER 2020-07-04 08:00 | Outpatient (CLI) | payer MEDICAID ==
--- NOTE | 2020-07-04 16:08 | XRAY Report ---
PROCEDURE: Shoulder 3 View LT INDICATIONS: LEFT SHOULDER PAIN TECHNIQUE: 3 views of the shoulder were acquired. COMPARISON: None. FINDINGS: Bones: No fractures or dislocations. No suspicious bony lesions. Visualized ribs appear intact. M ild periarticular osteophyte formation at the acromioclavicular and glenohumeral joints. Soft tissues: No suspicious soft tissue calcifications. IMPRESSION: Osteoarthritis. No acute fracture. No osseous lesion. If symptoms and/or clinical suspic ion for pathology continue, further assessment with repeat plain films, or advanced imaging (e.g., CT , MRI, or bone scan) is recommended for further assessment. Reviewed by: Lj Putnam MD on 07/04/2020 4:07 PM PDT Approved by: Lj Putnam MD on 07/04/2020 4:07 PM PDT Station ID: [id number]
== END 2020-07-04 23:59 | disposition home or self-care (01) ==
LOC: DI.S 08:00
PROVIDERS: ATTEND Physician Assistant
DX: M25.512 Pain in left shoulder (principal); M19.012 Primary osteoarthritis, left shoulder

== ENCOUNTER 2020-07-05 10:46 | Emergency (ER) | payer MEDICAID ==
[2020-07-05] MEDS ORDERED: INSULIN REGULAR HUMAN 100 UNIT/1 ML 10 ML MDV IVP STA (10:57)
[2020-07-05] MEDS ORDERED: SODIUM CHLORIDE 0.9% 1,000 ML IV STA (10:57)
--- NOTE | 2020-07-05 10:58 | ED Physician Documentation ---
History of Present Illness - Stated complaint Stated Complaint: HIGH BLOOD SUGAR - Chief complaint Chief Complaint: General - History obtained from History obtained from: Patient - Additonal information Additional information: 55-year-old gentleman with history of alcoholic cirrhosis, prior history of insulin use for type 2 diabetes, now just on Metformin. He had not checked his blood sugar in a few months and for no particular reason other than his doctor advised him to, he checked his blood sugar today and found it to be over 500. He says he has chronic polydipsia and polyuria but that has not changed recently. He denies other complaints. He does not feel particularly sick. On arrival his fingerstick was 326. He has been compliant with his Metformin. Review of Systems Constitutional: denies: Fever, Chills Nose: denies: Rhinorrhea / runny nose Cardiac: denies: Chest pain / pressure, Palpitations Respiratory: denies: Dyspnea, Cough PD PAST MEDICAL HISTORY - Past Medical History Cardiovascular: Hypertension Endocrine/Autoimmune: Type 2 diabetes GI: Cirrhosis, Other Psych: Depression - Past Surgical History General: Splenectomy Ortho: Other HEENT: Other - Present Medications Home Medications: Ambulatory Orders Medication Instructions Recorded Confirmed Lactulose 10 gm PO TID #90 bottle 03/21/20 05/27/20 Losartan Potassium 25 mg PO DAILY 03/21/20 05/27/20 buPROPion [Wellbutrin Xl] 150 mg PO DAILY 03/21/20 05/27/20 metFORMIN [Glucophage] 1,000 mg PO BID 03/21/20 05/27/20 Magnesium Chloride 70 mg PO BID 05/22/20 05/22/20 Magnesium Oxide [Magnesium] 1,200 mg PO DAILY 05/22/20 05/27/20 Triamcinolone 0.5% Cream [Kenalog 1 applic TOP BID PRN 05/22/20 05/22/20 0.5% Cream] traZODone [Desyrel] 50 mg PO HS 05/22/20 05/27/20 Insulin Glargine [Lantus Solostar] 10 unit SUBQ DAILY #1 07/05/20 - Allergies Allergies/Adverse Reactions: Allergies Allergy/AdvReac Type Severity Reaction Status Date / Time No Known Drug Allergies Allergy Verified 07/05/20 10:54 - Social History Does the pt smoke?: No Smoking Status: Current every day smoker - POLST Patient has POLST: No POLST Status: Full Code PD ED PE NORMAL - Vitals Vital signs reviewed: Yes - General General: Alert and oriented X 3, No acute distress - Respiratory Respiratory: No respiratory distress - Abdomen Abdomen: Non tender - Derm Derm: Normal color, Warm and dry - Neuro Neuro: Alert and oriented X 3, Normal speech Results - Vitals Vitals: Vital Signs - 24 hr 07/05/20 07/05/20 10:54 10:56 Temperature 36.8 C 36.2 C L Heart Rate 113 H 104 H Respiratory 19 18 Rate Blood Pressure 135/77 H 128/71 O2 Saturation 98 99 Oxygen O2 Source Room air - Labs Labs: Laboratory Tests 07/05/20 07/05/20 07/05/20 10:52 11:05 11:05 Sodium 132 L Potassium 4.1 Chloride 94 L Carbon Dioxide 19 L Anion Gap 19.0 H BUN 23 H Creatinine 1.0 Estimated GFR (MDRD) 78 L Glucose 344 H POC Whole Bld Glucose 328 H Estimat Average Glucose 249 H Hemoglobin A1c % 10.3 H Calcium 9.8 Magnesium 2.3 07/05/20 12:59 Sodium Potassium Chloride Carbon Dioxide Anion Gap BUN Creatinine Estimated GFR (MDRD) Glucose POC Whole Bld Glucose 262 H Estimat Average Glucose Hemoglobin A1c % Calcium Magnesium PD MEDICAL DECISION MAKING - ED course ED course: 55 to male with known Type II DM on metformin. Now w hyperglycemia, chronicity not clear given That he has been taking his blood sugars for the last few months until today. He was given some IV fluids and IV insulin subsequently his blood sugar was in the 200s. No evidence of DKA. He will be started on Lantus. Departure - Departure Disposition: Home, Self Care Clinical Impression: Diabetes mellitus Qualifiers: Diabetes mellitus type: type 2 Diabetes mellitus long term care pharmacist insulin use: without custodial use Diabetes mellitus complication status: with hyperglycemia Qualified Code(s): E11.65 - Type 2 diabetes mellitus with hyperglycemia Condition: Stable Record reviewed to determine appropriate education?: Yes Instructions: ED Hyperglycemia Diabetic, ED Injection Pen Using Follow-Up: Jovani Marie MD [Primary Care Provider] - Prescriptions: Insulin Glargine [Lantus Solostar] 10 unit SUBQ DAILY #1 Comments: Start lantus at 10 units/day. You can increase slowly (by 2 units/day) if persistent blood sugars greater than 200. Follow[address] Marie this week. Discharge Date/Time: 07/05/20 13:18
[2020-07-05 11:17] LABS: CALCIUM 9.8 mg/dL (8.5-10.3); MAGNESIUM 2.3 mg/dL (1.7-2.8); POTASSIUM 4.1 mmol/L (3.5-5.0)
[2020-07-05] MEDS ORDERED: diltiaZEM INJ 5 MG/ML VIAL ONE (11:30)
[2020-07-05 13:05] VITALS: BP 128/71
[2020-07-05 13:08] LABS: ESTIMATED AVERAGE GLUCOSE 249 mg/dL (70-100); HEMOGLOBIN A1c% 10.3 % (4.27-6.07)
--- OUTSIDE RECORDS SUMMARY | 2020-07-09 02:30 | EXTERNAL MEDICAL SUMMARY RPT | Continuity of Care Document ---
:1965 Demographics Phone Unavailable Preferred Language Unknown Marital Status Unknown Jewish Affiliation Unknown Race Unknown Ethnic Group Unknown Author Organization [facility] [address] [place] [address] Phone Social History date description facility [phone]
== END 2020-07-05 13:18 | disposition home or self-care (01) ==
LOC: ED 10:46
DX: E11.65 Type 2 diabetes mellitus with hyperglycemia (principal); Z79.84 Long term (current) use of oral hypoglycemic drugs; I10 Essential (primary) hypertension; K70.30 Alcoholic cirrhosis of liver without ascites
CPT/HCPCS: 36415; 80048; 83036; 83735; 99283; J1815

== ENCOUNTER 2020-07-06 07:25 | Emergency (ER) | payer MEDICAID ==
[2020-07-06] MEDS ORDERED: SODIUM CHLORIDE 0.9% 1,000 ML IV STA (07:37)
[2020-07-06 08:03] LABS: BASOPHILS % (AUTO) 0.3 %; EOSINOPHILS # (AUTO) 0.2 10^3/uL (0.0-0.7); EOSINOPHILS % (AUTO) 2.2 %; HGB - HEMOGLOBIN 10.7 g/dL (14.0-18.0); LYMPHOCYTES # (AUTO) 3.8 10^3/uL (1.5-3.5); LYMPHOCYTES % (AUTO) 39.3 %; MEAN CORPUSCULAR HEMOGLOBIN 36.6 pg (27.0-31.0); MEAN CORPUSCULAR HGB CONC 35.7 g/dL (32.0-36.0); MEAN CORPUSCULAR VOLUME 102.7 fL (80.0-94.0); MEAN PLATELET VOLUME 10.9 fL (7.4-11.4); MONOCYTES # (AUTO) 0.7 10^3/uL (0.0-1.0); MONOCYTES % (AUTO) 6.9 %; NEUTROPHILS # (AUTO) 4.9 10^3/uL (1.5-6.6); NEUTROPHILS % (AUTO) 50.9 %; PLT - PLATELET COUNT 134 10^3/uL (130-450); RED BLOOD COUNT 2.92 10^6/uL (4.70-6.10); RED CELL DISTRIBUTION WIDTH 15.3 % (12.0-15.0); WHITE BLOOD COUNT 9.6 x10^3/uL (4.8-10.8)
[2020-07-06 08:04] LABS: ALBUMIN 3.1 g/dL (3.2-5.5); ALBUMIN/GLOBULIN RATIO 0.7 (1.0-2.2); BILIRUBIN,TOTAL 3.8 mg/dL (0.2-1.0); CALCIUM 9.2 mg/dL (8.5-10.3); CREATININE 0.8 mg/dL (0.6-1.2); POTASSIUM 3.5 mmol/L (3.5-5.0); TOTAL PROTEIN 7.3 g/dL (6.7-8.2)
[2020-07-06] MEDS ORDERED: INSULIN REGULAR HUMAN 100 UNIT/1 ML 10 ML MDV IVP STA (08:22)
--- NOTE | 2020-07-06 09:11 | ED Physician Documentation ---
History of Present Illness - Stated complaint Stated Complaint: HIGH BLOOD SUGAR - Chief complaint Chief Complaint: General - History obtained from History obtained from: Patient - Additonal information Additional information: Patient returns emergency department for chief complaint of "my blood sugar is running high again." Patient was just seen in the emergency department yesterday for hyperglycemia. At that time, he was given IV insulin and had Lantus added to his home regimen of Metformin. The patient states that he took the Lantus last night, as prescribed, but did not take his Metformin last night or this morning because he was not sure if he was still supposed to be on it. Patient also has not eaten breakfast this morning. He states that when he left the emergency department yesterday, his sugar was in the 200s. However, in the hours after he got home, he ate dinner and he noticed that his blood sugar began to climb. Around 2200, he states he measured a blood sugar of 600 but that this then went down to 400 around midnight. He decided to get some sleep but when he woke up this morning, he found that his blood sugar was still 400. This prompted him to return to the emergency department. Patient states that he has been on Metformin for quite some time and that prior to yesterday, he was not checking his blood sugars very often at all. The last time had been about a month before and he is not sure exactly how high his sugar was but he thinks it was somewhere in the 100s. Patient states he does not feel ill in any way. He is only here because he thought his blood sugar would be lower than it is. No other complaints at this time. Review of Systems Ten Systems: 10 systems reviewed and negative Constitutional: reports: Reviewed and negative Eyes: reports: Reviewed and negative Ears: reports: Reviewed and negative Nose: reports: Reviewed and negative Throat: reports: Reviewed and negative Cardiac: reports: Reviewed and negative Respiratory: reports: Reviewed and negative GI: reports: Reviewed and negative : reports: Reviewed and negative Skin: reports: Reviewed and negative Musculoskeletal: reports: Reviewed and negative Neurologic: reports: Reviewed and negative Psychiatric: reports: Reviewed and negative Endocrine: reports: Reviewed and negative Immunocompromised: reports: Reviewed and negative PD PAST MEDICAL HISTORY - Past Medical History Past Medical History: Yes Cardiovascular: Hypertension Respiratory: None Neuro: None Endocrine/Autoimmune: Type 2 diabetes GI: Cirrhosis, Other : None HEENT: None Psych: Depression Musculoskeletal: None Derm: None - Past Surgical History General: Splenectomy Ortho: Other HEENT: Other - Present Medications Home Medications: Ambulatory Orders Medication Instructions Recorded Confirmed Lactulose 10 gm PO TID #90 bottle 03/21/20 05/27/20 Losartan Potassium 25 mg PO DAILY 03/21/20 05/27/20 buPROPion [Wellbutrin Xl] 150 mg PO DAILY 03/21/20 05/27/20 metFORMIN [Glucophage] 1,000 mg PO BID 03/21/20 05/27/20 Magnesium Chloride 70 mg PO BID 05/22/20 05/22/20 Magnesium Oxide [Magnesium] 1,200 mg PO DAILY 05/22/20 05/27/20 Triamcinolone 0.5% Cream [Kenalog 1 applic TOP BID PRN 05/22/20 05/22/20 0.5% Cream] traZODone [Desyrel] 50 mg PO HS 05/22/20 05/27/20 Insulin Glargine [Lantus Solostar] 10 unit SUBQ DAILY #1 07/05/20 - Allergies Allergies/Adverse Reactions: Allergies Allergy/AdvReac Type Severity Reaction Status Date / Time No Known Drug Allergies Allergy Verified 07/06/20 07:33 - Social History Does the pt smoke?: No Smoking Status: Never smoker Does the pt drink ETOH?: Yes Does the pt have substance abuse?: No - Immunizations Immunizations are current?: Yes - POLST Patient has POLST: No POLST Status: Full Code PD ED PE NORMAL - Vitals Vital signs reviewed: Yes - General General: Alert and oriented X 3, No acute distress, Well developed/nourished - HEENT HEENT: Atraumatic, PERRL, EOMI, Moist mucous membranes - Neck Neck: Supple, no meningeal sign - Cardiac Cardiac: RRR, No murmur - Respiratory Respiratory: No respiratory distress, Clear bilaterally - Abdomen Abdomen: Soft, Non tender, Non distended - Derm Derm: Normal color, Warm and dry, No rash - Extremities Extremities: No deformity, No edema, No calf tenderness / cord - Neuro Neuro: Alert and oriented X 3, director of restaurants 2-12 intact, Normal speech, Other (Grossly normal.) - Psych Psych: Normal mood, Normal affect Results - Vitals Vitals: Vital Signs - 24 hr 07/06/20 07:29 Temperature 37.1 C Heart Rate 88 Respiratory 18 Rate Blood Pressure 126/66 O2 Saturation 99 Oxygen O2 Source Room air - Labs Labs: Laboratory Tests 07/06/20 07/06/20 07/06/20 07:37 07:45 07:45 WBC 9.6 RBC 2.92 L Hgb 10.7 L Hct 30.0 L MCV 102.7 H MCH 36.6 H MCHC 35.7 RDW 15.3 H Plt Count 134 MPV 10.9 Neut # (Auto) 4.9 Lymph # (Auto) 3.8 H Hughes # (Auto) 0.7 Eos # (Auto) 0.2 Baso # (Auto) 0.0 Absolute Nucleated RBC 0.00 Nucleated RBC % 0.0 Sodium 132 L Potassium 3.5 Chloride 98 L Carbon Dioxide 22 Anion Gap 12.0 BUN 17 Creatinine 0.8 Estimated GFR (MDRD) 101 Glucose 308 H POC Whole Bld Glucose 327 H Calcium 9.2 Total Bilirubin 3.8 H AST 48 H ALT 33 Alkaline Phosphatase 195 H Total Protein 7.3 Albumin 3.1 L Globulin 4.2 Albumin/Globulin Ratio 0.7 L Lipase 29 07/06/20 09:09 WBC RBC Hgb Hct MCV MCH MCHC RDW Plt Count MPV Neut # (Auto) Lymph # (Auto) Hughes # (Auto) Eos # (Auto) Baso # (Auto) Absolute Nucleated RBC Nucleated RBC % Sodium Potassium Chloride Carbon Dioxide Anion Gap BUN Creatinine Estimated GFR (MDRD) Glucose POC Whole Bld Glucose 258 H Calcium Total Bilirubin AST ALT Alkaline Phosphatase Total Protein Albumin Globulin Albumin/Globulin Ratio Lipase PD MEDICAL DECISION MAKING - ED course Complexity details: reviewed old records, reviewed results, re-evaluated patient, considered differential, d/w patient ED course: Patient was worked up with laboratory studies after fingerstick glucose was found to be 327. He was given a liter point and normal saline while waiting for his labs, as well. The blood sugar on labs was found to be 308. Patient was given 10 units of insulin IV here in the emergency department and following this, his blood sugar was found to be 258 about 30 minutes later. The patient had misunderstood the instructions yesterday regarding the Lantus and I did inform him that he does need to stay on his metformin as well as take the Lantus. Since we have given him IV insulin here and he is fasting and the Lantus is still obviously working, I have advised him to go home and eat breakfast and then take his morning Metformin. After this, he should stay on his metformin as usual. The patient is advised to follow the titration instructions given him yesterday and bring his Lantus dose up to 12 units from 10 tonight. I have advised him to call first thing tomorrow morning to make an appointment with his primary care physician to follow-up this week to determine the best long-term plan for management of his blood sugars. We have discussed the need to eat regular and normal meals, but not to eat foods that are high in sugar. We have discussed the usual indications for return. Departure - Departure Disposition: Home, Self Care Clinical Impression: Hyperglycemia due to diabetes mellitus Condition: Stable Instructions: ED Hyperglycemia Diabetic Comments: Your blood sugar today was 308 on your labs. While this is still not ideal, it is certainly within range of treatment at home. The Lantus was intended to be in addition to the Metformin that you are already on, so please be sure to take your Metformin, also. When you get home, since you have not eaten breakfast yet and we have given you a dose of insulin here, will have her eat breakfast first and then take your dose of Metformin. You should take tonight's dose, as planned, as well as the Lantus. You should continue the titration plan that Dr. Murray gave you yesterday, which is to add 2 units/day of Lantus as long as your blood sugars are staying above 200. Therefore, you should take 12 units tonight. You should eat normal meals, though try to avoid foods that have a high level of sugar or processing. Please call your doctor's office first thing tomorrow morning to set up an appointment to be seen sometime this week for reevaluation and to establish a concrete long-term plan.
[2020-07-06 09:20] VITALS: BP 128/83
--- OUTSIDE RECORDS SUMMARY | 2020-07-09 02:38 | EXTERNAL MEDICAL SUMMARY RPT | Continuity of Care Document ---
:1965 Demographics Phone Unavailable Preferred Language Unknown Marital Status Unknown Temple Affiliation Unknown Race Unknown Ethnic Group Unknown Author Organization [facility] [address] [place] [address] Phone Social History date description facility [phone]
== END 2020-07-06 09:31 | disposition home or self-care (01) ==
LOC: ED 07:25
DX: E11.65 Type 2 diabetes mellitus with hyperglycemia (principal); Z79.84 Long term (current) use of oral hypoglycemic drugs; I10 Essential (primary) hypertension
CPT/HCPCS: 36415; 80053; 83690; 85025; 99283; 99284; J1815

== ENCOUNTER 2020-08-29 08:02 | Outpatient (CLI) | payer MEDICAID ==
[2020-08-29 15:22] LABS: ALBUMIN/GLOBULIN RATIO 0.7 (1.0-2.2); BILIRUBIN,TOTAL 5.4 mg/dL (0.2-1.0); CALCIUM 9.1 mg/dL (8.5-10.3); CREATININE 0.6 mg/dL (0.6-1.2); POTASSIUM 4.1 mmol/L (3.5-5.0); TOTAL PROTEIN 7.6 g/dL (6.7-8.2)
[2020-08-29 21:12] LABS: ESTIMATED AVERAGE GLUCOSE 131 mg/dL (70-100); HEMOGLOBIN A1c% 6.2 % (4.27-6.07)
== END 2020-08-29 08:03 | disposition home or self-care (01) ==
LOC: LAB.S 08:02
PROVIDERS: ATTEND Internal Medicine
DX: E11.8 Type 2 diabetes mellitus with unspecified complications (principal); D64.9 Anemia, unspecified; K76.89 Other specified diseases of liver
CPT/HCPCS: 36415; 80053; 83036

== ENCOUNTER 2020-12-12 08:06 | Outpatient (CLI) | payer MEDICAID ==
[2020-12-12 14:51] LABS: BASOPHILS % (AUTO) 0.4 %; EOSINOPHILS % (AUTO) 3.9 %; HGB - HEMOGLOBIN 10.4 g/dL (14.0-18.0); LYMPHOCYTES % (AUTO) 57.5 %; MEAN CORPUSCULAR HEMOGLOBIN 38.5 pg (27.0-31.0); MEAN CORPUSCULAR HGB CONC 34.7 g/dL (32.0-36.0); MEAN CORPUSCULAR VOLUME 111.1 fL (80.0-94.0); MEAN PLATELET VOLUME 11.6 fL (7.4-11.4); MONOCYTES % (AUTO) 10.5 %; NEUTROPHILS % (AUTO) 27.5 %; PLT - PLATELET COUNT 155 10^3/uL (130-450); RED CELL DISTRIBUTION WIDTH 14.6 % (12.0-15.0); WHITE BLOOD COUNT 13.9 x10^3/uL (4.8-10.8)
[2020-12-12 15:30] LABS: ALBUMIN 3.2 g/dL (3.2-5.5); ALBUMIN/GLOBULIN RATIO 0.8 (1.0-2.2); BILIRUBIN,TOTAL 5.5 mg/dL (0.2-1.0); CALCIUM 9.5 mg/dL (8.5-10.3); CREATININE 0.7 mg/dL (0.6-1.2); MAGNESIUM 1.3 mg/dL (1.7-2.8); POTASSIUM 3.9 mmol/L (3.5-5.0); TOTAL PROTEIN 7.4 g/dL (6.7-8.2)
[2020-12-12 15:37] LABS: ABNORMAL LYMPHS % (MANUAL) 0 %; BAND NEUTROPHILS % (MANUAL) 0 %
[2020-12-12 15:51] LABS: EOSINOPHILS # (MANUAL) 0.1 10^3/uL (0-0.7); LYMPHOCYTES # (MANUAL) 7.2 10^3/uL (1.5-3.5); LYMPHOCYTES % (MANUAL) 45 %; MONOCYTES # (MANUAL) 1.3 10^3/uL (0.0-1.0); NEUTROPHILS # (MANUAL) 5.3 10^3/uL (1.5-6.6); REACTIVE LYMPHS % (MANUAL) 7 %
[2020-12-12 15:52] LABS: DIFFERENTIAL COMMENT MANUAL DIFFERENTIAL; PLATELET ESTIMATE, MANUAL NORMAL (130-450,000) (NORMAL); PLATELET MORPHOLOGY NORMAL APPEARANCE (NORMAL)
[2020-12-12 20:52] LABS: ESTIMATED AVERAGE GLUCOSE 140 mg/dL (70-100); HEMOGLOBIN A1c% 6.5 % (4.27-6.07)
== END 2020-12-12 08:07 | disposition home or self-care (01) ==
LOC: LAB.S 08:06
PROVIDERS: ATTEND Internal Medicine
DX: K74.60 Unspecified cirrhosis of liver (principal); E11.8 Type 2 diabetes mellitus with unspecified complications; E83.42 Hypomagnesemia
CPT/HCPCS: 36415; 80053; 83036; 83735; 85025

== ENCOUNTER 2021-01-31 09:20 | Outpatient (CLI) | payer MEDICAID ==
[2021-01-31 15:04] LABS: HCT - HEMATOCRIT 34.4 % (42.0-52.0); HGB - HEMOGLOBIN 11.7 g/dL (14.0-18.0); MEAN CORPUSCULAR HEMOGLOBIN 37.4 pg (27.0-31.0); MEAN CORPUSCULAR VOLUME 109.9 fL (80.0-94.0); MEAN PLATELET VOLUME 11.8 fL (7.4-11.4); RED BLOOD COUNT 3.13 10^6/uL (4.70-6.10); RED CELL DISTRIBUTION WIDTH 14.5 % (12.0-15.0); WHITE BLOOD COUNT 9.8 x10^3/uL (4.8-10.8)
[2021-01-31 15:12] LABS: INR 1.4 (0.8-1.2); PT - PROTHROMBIN TIME 15.8 secs (9.9-12.6)
[2021-01-31 15:28] LABS: ALBUMIN 3.5 g/dL (3.2-5.5); ALBUMIN/GLOBULIN RATIO 0.8 (1.0-2.2); ALKALINE PHOSPHATASE 160 IU/L (42-121); ALT ALANINE AMINOTRANSFERASE 21 IU/L (10-60); AST ASPARTATE AMINOTRANSFERASE 38 IU/L (10-42); BILIRUBIN,TOTAL 4.3 mg/dL (0.2-1.0); BUN - BLOOD UREA NITROGEN 19 mg/dL (6-20); CALCIUM 9.6 mg/dL (8.5-10.3); CARBON DIOXIDE - CO2 23 mmol/L (21-32); CHLORIDE 101 mmol/L (101-111); CREATININE 0.6 mg/dL (0.6-1.2); GFR - MDRD 141 (>89); GLUCOSE 149 mg/dL (70-100); MAGNESIUM 1.7 mg/dL (1.7-2.8); POTASSIUM 4.2 mmol/L (3.5-5.0); SODIUM 135 mmol/L (135-145); TOTAL PROTEIN 7.9 g/dL (6.7-8.2)
[2021-01-31 15:38] LABS: RHEUMATOID FACTOR NEGATIVE (Negative)
[2021-01-31 15:56] LABS: CRP - C-REACTIVE PROTEIN < 1.0 mg/dL (0-1.0)
== END 2021-01-31 09:21 | disposition home or self-care (01) ==
LOC: LAB.S 09:20
PROVIDERS: ATTEND Internal Medicine
DX: K74.60 Unspecified cirrhosis of liver (principal); E83.42 Hypomagnesemia; M25.50 Pain in unspecified joint
CPT/HCPCS: 36415; 80053; 83735; 85025; 85027; 85610; 85651; 86140; 86200; 86430

== ENCOUNTER 2021-02-14 08:57 | Outpatient (CLI) | payer MEDICAID ==
--- NOTE | 2021-02-14 15:10 | Ultrasound Report ---
PROCEDURE: Right upper quadrant ultrasound INDICATIONS: CIRRHOSIS TECHNIQUE: Real-time focused scanning was performed of the abdomen, with image documentation. COMPARISON: 03/20/2020 FINDINGS: Liver: Liver shows increased echogenicity with coarsened pattern consistent with cirrhosis, stable fr om the prior exam. No focal mass lesion present. Microscopic noted. gallbladder: Shadowing calculi noted in the lingula gallbladder, and color wall thickness is upper li mits of normal at 3 mm. No pericholecystic fluid or Sterling's sign present. CBD 8 mm, also stable from the prior. IMPRESSION: 1. Hepatic cirrhosis and prominent distal CBD, stable from prior 2. Cholelithiasis without ultrasound evidence of acute cholecystitis Reviewed by: Trey Rg MD on 02/14/2021 2:08 PM AKST Approved by: Trey Rg MD on 02/14/2021 2:08 PM AKST Station ID: [id number]
== END 2021-02-14 08:58 | disposition home or self-care (01) ==
LOC: DI 08:57
PROVIDERS: ATTEND Internal Medicine
DX: K74.60 Unspecified cirrhosis of liver (principal); K80.20 Calculus of gallbladder without cholecystitis without obstruction

== ENCOUNTER 2021-05-11 08:04 | Outpatient (CLI) | payer MEDICAID ==
[2021-05-11 14:23] LABS: BASOPHILS # (AUTO) 0.1 10^3/uL (0.0-0.1); BASOPHILS % (AUTO) 0.5 %; EOSINOPHILS # (AUTO) 0.3 10^3/uL (0.0-0.7); EOSINOPHILS % (AUTO) 2.6 %; HCT - HEMATOCRIT 40.5 % (42.0-52.0); HGB - HEMOGLOBIN 13.6 g/dL (14.0-18.0); LYMPHOCYTES % (AUTO) 52.2 %; MEAN CORPUSCULAR HEMOGLOBIN 35.4 pg (27.0-31.0); MEAN CORPUSCULAR HGB CONC 33.6 g/dL (32.0-36.0); MEAN CORPUSCULAR VOLUME 105.5 fL (80.0-94.0); MEAN PLATELET VOLUME 12.8 fL (7.4-11.4); MONOCYTES # (AUTO) 0.8 10^3/uL (0.0-1.0); MONOCYTES % (AUTO) 8.8 %; NEUTROPHILS # (AUTO) 3.4 10^3/uL (1.5-6.6); NEUTROPHILS % (AUTO) 35.6 %; PLT - PLATELET COUNT 139 10^3/uL (130-450); RED BLOOD COUNT 3.84 10^6/uL (4.70-6.10); RED CELL DISTRIBUTION WIDTH 14.6 % (12.0-15.0); WHITE BLOOD COUNT 9.5 x10^3/uL (4.8-10.8)
[2021-05-11 14:28] LABS: INR 1.4 (0.8-1.2); PT - PROTHROMBIN TIME 15.8 secs (9.9-12.6)
[2021-05-11 15:19] LABS: ALBUMIN 3.4 g/dL (3.2-5.5); ALBUMIN/GLOBULIN RATIO 0.8 (1.0-2.2); BILIRUBIN,TOTAL 3.7 mg/dL (0.2-1.0); CALCIUM 9.2 mg/dL (8.5-10.3); CREATININE 0.7 mg/dL (0.6-1.2); MAGNESIUM 1.5 mg/dL (1.7-2.8); POTASSIUM 3.8 mmol/L (3.5-5.0); TOTAL PROTEIN 7.7 g/dL (6.7-8.2)
[2021-05-11 20:40] LABS: ESTIMATED AVERAGE GLUCOSE 263 mg/dL (70-100); HEMOGLOBIN A1c% 10.8 % (4.27-6.07)
== END 2021-05-11 08:05 | disposition home or self-care (01) ==
LOC: LAB.S 08:04
PROVIDERS: ATTEND Internal Medicine
DX: K74.60 Unspecified cirrhosis of liver (principal); E11.8 Type 2 diabetes mellitus with unspecified complications; E83.42 Hypomagnesemia
CPT/HCPCS: 36415; 80053; 83036; 83735; 85025; 85610

== ENCOUNTER 2021-07-11 10:57 | Outpatient (CLI) | payer MEDICAID ==
[2021-07-11 15:52] LABS: ALBUMIN 3.4 g/dL (3.2-5.5); ALBUMIN/GLOBULIN RATIO 0.9 (1.0-2.2); BILIRUBIN,TOTAL 3.4 mg/dL (0.2-1.0); CALCIUM 9.6 mg/dL (8.5-10.3); CREATININE 0.6 mg/dL (0.6-1.2); MAGNESIUM 1.5 mg/dL (1.7-2.8); POTASSIUM 4.1 mmol/L (3.5-5.0); TOTAL PROTEIN 7.4 g/dL (6.7-8.2)
== END 2021-07-11 10:58 | disposition home or self-care (01) ==
LOC: LAB.S 10:57
PROVIDERS: ATTEND Internal Medicine
DX: E83.42 Hypomagnesemia (principal)
CPT/HCPCS: 36415; 80053; 83735

== ENCOUNTER 2022-02-01 11:56 | Outpatient (CLI) | payer MEDICAID ==
[2022-02-01 14:42] LABS: BASOPHILS # (AUTO) 0.1 10^3/uL (0.0-0.1); BASOPHILS % (AUTO) 0.6 %; EOSINOPHILS # (AUTO) 0.3 10^3/uL (0.0-0.7); EOSINOPHILS % (AUTO) 3.1 %; HCT - HEMATOCRIT 34.1 % (42.0-52.0); HGB - HEMOGLOBIN 11.7 g/dL (14.0-18.0); LYMPHOCYTES # (AUTO) 3.6 10^3/uL (1.5-3.5); LYMPHOCYTES % (AUTO) 38.3 %; MEAN CORPUSCULAR HGB CONC 34.3 g/dL (32.0-36.0); MEAN CORPUSCULAR VOLUME 102.1 fL (80.0-94.0); MEAN PLATELET VOLUME 11.3 fL (7.4-11.4); MONOCYTES # (AUTO) 0.9 10^3/uL (0.0-1.0); MONOCYTES % (AUTO) 9.6 %; NEUTROPHILS # (AUTO) 4.6 10^3/uL (1.5-6.6); NEUTROPHILS % (AUTO) 48.2 %; PLT - PLATELET COUNT 248 10^3/uL (130-450); RED BLOOD COUNT 3.34 10^6/uL (4.70-6.10); RED CELL DISTRIBUTION WIDTH 14.6 % (12.0-15.0); WHITE BLOOD COUNT 9.5 x10^3/uL (4.8-10.8)
[2022-02-01 15:12] LABS: ALBUMIN 3.2 g/dL (3.2-5.5); ALBUMIN/GLOBULIN RATIO 0.7 (1.0-2.2); ALKALINE PHOSPHATASE 171 IU/L (42-121); ALT ALANINE AMINOTRANSFERASE 21 IU/L (10-60); AST ASPARTATE AMINOTRANSFERASE 29 IU/L (10-42); BILIRUBIN,TOTAL 2.5 mg/dL (0.2-1.0); BUN - BLOOD UREA NITROGEN 12 mg/dL (6-20); CALCIUM 9.7 mg/dL (8.5-10.3); CARBON DIOXIDE - CO2 25 mmol/L (21-32); CHLORIDE 102 mmol/L (101-111); CHOL/HDL RATIO 4.6 (<5.0); CHOLESTEROL 189 mg/dL; CREATININE 0.7 mg/dL (0.6-1.2); GFR - MDRD 118 (>89); GLUCOSE 264 mg/dL (70-100); HDL CHOLESTEROL 41 mg/dL; LDL CHOLESTEROL,CALCULATED 130 mg/dL; LDL/HDL RATIO 3.2 (<3.6); POTASSIUM 4.1 mmol/L (3.5-5.0); SODIUM 136 mmol/L (135-145); TOTAL PROTEIN 7.7 g/dL (6.7-8.2); TRIGLYCERIDES 90 mg/dL; VLDL CHOLESTEROL 18 mg/dL
[2022-02-01 21:29] LABS: ESTIMATED AVERAGE GLUCOSE 275 mg/dL (70-100); HEMOGLOBIN A1c% 11.2 % (4.27-6.07)
== END 2022-02-01 11:57 | disposition home or self-care (01) ==
LOC: LAB.S 11:56
PROVIDERS: ATTEND Physician Assistant Medical
DX: E11.8 Type 2 diabetes mellitus with unspecified complications (principal)
CPT/HCPCS: 36415; 80053; 80061; 82043; 82570; 83036; 83721; 85025

== ENCOUNTER 2022-02-02 08:00 | Outpatient (CLI) | payer MEDICAID ==
[2022-02-02 21:41] LABS: CREATININE,URINE 88.1 mg/dL; MICROALBUM/CREATININE RATIO,UR 215.7 ug/mg (<30.0)
== END 2022-02-02 23:59 | disposition home or self-care (01) ==
LOC: LAB.S 08:00
PROVIDERS: ATTEND Physician Assistant Medical
DX: E11.8 Type 2 diabetes mellitus with unspecified complications (principal)
CPT/HCPCS: 82043; 82570

== ENCOUNTER 2022-05-14 09:15 | Outpatient (CLI) | payer MEDICAID ==
[2022-05-14 15:15] LABS: ESTIMATED AVERAGE GLUCOSE 301 mg/dL (70-100); HEMOGLOBIN A1c% 12.1 % (4.27-6.07)
[2022-05-14 15:50] LABS: CALCIUM 9.2 mg/dL (8.5-10.3); CREATININE 0.6 mg/dL (0.6-1.2); POTASSIUM 4.3 mmol/L (3.5-5.0)
== END 2022-05-14 09:16 | disposition home or self-care (01) ==
LOC: LAB.S 09:15
PROVIDERS: ATTEND Internal Medicine
DX: E11.9 Type 2 diabetes mellitus without complications (principal)
CPT/HCPCS: 36415; 80048; 83036

== ENCOUNTER 2022-08-18 09:27 | Outpatient (CLI) | payer MEDICAID ==
[2022-08-18 14:28] LABS: BASOPHILS % (AUTO) 0.4 %; EOSINOPHILS # (AUTO) 0.3 10^3/uL (0.0-0.7); EOSINOPHILS % (AUTO) 3.4 %; HCT - HEMATOCRIT 40.1 % (42.0-52.0); HGB - HEMOGLOBIN 13.4 g/dL (14.0-18.0); LYMPHOCYTES # (AUTO) 3.8 10^3/uL (1.5-3.5); LYMPHOCYTES % (AUTO) 41.9 %; MEAN CORPUSCULAR HGB CONC 33.4 g/dL (32.0-36.0); MEAN CORPUSCULAR VOLUME 98.8 fL (80.0-94.0); MEAN PLATELET VOLUME 12.3 fL (7.4-11.4); MONOCYTES # (AUTO) 0.6 10^3/uL (0.0-1.0); NEUTROPHILS # (AUTO) 4.3 10^3/uL (1.5-6.6); NEUTROPHILS % (AUTO) 47.1 %; PLT - PLATELET COUNT 206 10^3/uL (130-450); RED BLOOD COUNT 4.06 10^6/uL (4.70-6.10); RED CELL DISTRIBUTION WIDTH 12.5 % (12.0-15.0); WHITE BLOOD COUNT 9.2 x10^3/uL (4.8-10.8)
[2022-08-18 15:42] LABS: ALBUMIN 3.1 g/dL (3.2-5.5); ALBUMIN/GLOBULIN RATIO 0.9 (1.0-2.2); BILIRUBIN,TOTAL 1.5 mg/dL (0.2-1.0); CALCIUM 8.9 mg/dL (8.5-10.3); CREATININE 0.8 mg/dL (0.6-1.2); TOTAL PROTEIN 6.7 g/dL (6.7-8.2)
[2022-08-18 17:25] LABS: ESTIMATED AVERAGE GLUCOSE 335 mg/dL (70-100); HEMOGLOBIN A1c% 13.3 % (4.27-6.07)
== END 2022-08-18 09:28 | disposition home or self-care (01) ==
LOC: LAB.S 09:27
PROVIDERS: ATTEND Internal Medicine
DX: E11.9 Type 2 diabetes mellitus without complications (principal); K70.30 Alcoholic cirrhosis of liver without ascites; D64.9 Anemia, unspecified
CPT/HCPCS: 36415; 80053; 83036; 85025

== ENCOUNTER 2022-11-18 14:16 | Outpatient (CLI) | payer MEDICAID ==
[2022-11-18 20:07] LABS: CHOL/HDL RATIO 4.3 (<5.0); CHOLESTEROL 163 mg/dL; HDL CHOLESTEROL 38 mg/dL; LDL CHOLESTEROL,CALCULATED 113 mg/dL; TRIGLYCERIDES 60 mg/dL (48-352); VLDL CHOLESTEROL 12 mg/dL
[2022-11-18 20:20] LABS: ESTIMATED AVERAGE GLUCOSE 214 mg/dL (70-100); HEMOGLOBIN A1c% 9.1 % (4.27-6.07)
[2022-11-20 07:09] LABS: C-PEPTIDE SERUM 0.9 ng/mL (1.1-4.4)
== END 2022-11-18 14:17 | disposition home or self-care (01) ==
LOC: LAB.S 14:16
PROVIDERS: ATTEND Nurse Practitioner
DX: E11.65 Type 2 diabetes mellitus with hyperglycemia (principal); E78.2 Mixed hyperlipidemia
CPT/HCPCS: 36415; 80061; 81599; 83036; 83525; 83721; 84681; 86341

== ENCOUNTER 2023-04-01 10:27 | Outpatient (CLI) | payer MEDICAID ==
[2023-04-01 14:45] LABS: BASOPHILS # (AUTO) 0.1 10^3/uL (0.0-0.1); BASOPHILS % (AUTO) 0.6 %; EOSINOPHILS # (AUTO) 0.3 10^3/uL (0.0-0.7); EOSINOPHILS % (AUTO) 3.5 %; HCT - HEMATOCRIT 37.2 % (42.0-52.0); HGB - HEMOGLOBIN 12.2 g/dL (14.0-18.0); LYMPHOCYTES # (AUTO) 3.6 10^3/uL (1.5-3.5); LYMPHOCYTES % (AUTO) 41.9 %; MEAN CORPUSCULAR HEMOGLOBIN 32.4 pg (27.0-31.0); MEAN CORPUSCULAR HGB CONC 32.8 g/dL (32.0-36.0); MEAN CORPUSCULAR VOLUME 98.9 fL (80.0-94.0); MEAN PLATELET VOLUME 11.5 fL (7.4-11.4); MONOCYTES # (AUTO) 0.7 10^3/uL (0.0-1.0); MONOCYTES % (AUTO) 7.8 %; PLT - PLATELET COUNT 295 10^3/uL (130-450); RED BLOOD COUNT 3.76 10^6/uL (4.70-6.10); RED CELL DISTRIBUTION WIDTH 13.6 % (12.0-15.0); WHITE BLOOD COUNT 8.6 x10^3/uL (4.8-10.8)
[2023-04-01 15:38] LABS: ALBUMIN 3.3 g/dL (3.2-5.5); BILIRUBIN,TOTAL 1.2 mg/dL (0.2-1.0); CALCIUM 9.1 mg/dL (8.5-10.3); CREATININE 0.8 mg/dL (0.6-1.3); TOTAL PROTEIN 6.5 g/dL (6.4-8.9)
[2023-04-01 21:34] LABS: ESTIMATED AVERAGE GLUCOSE 160 mg/dL (70-100); HEMOGLOBIN A1c% 7.2 % (4.27-6.07)
== END 2023-04-01 10:28 | disposition home or self-care (01) ==
LOC: LAB.S 10:27
PROVIDERS: ATTEND Nurse Practitioner
DX: E11.9 Type 2 diabetes mellitus without complications (principal); K70.30 Alcoholic cirrhosis of liver without ascites; D64.9 Anemia, unspecified
CPT/HCPCS: 36415; 80053; 83036; 85025

== ENCOUNTER 2023-05-12 11:17 | Outpatient (CLI) | payer MEDICAID ==
[2023-05-12 15:51] LABS: ALBUMIN 2.9 g/dL (3.2-5.5); ALKALINE PHOSPHATASE 109 IU/L (42-121); ALT ALANINE AMINOTRANSFERASE 19 IU/L (10-60); AST ASPARTATE AMINOTRANSFERASE 35 IU/L (10-42); BILIRUBIN,TOTAL 1.2 mg/dL (0.2-1.0); BUN - BLOOD UREA NITROGEN 17 mg/dL (6-20); CALCIUM 8.8 mg/dL (8.5-10.3); CARBON DIOXIDE - CO2 25 mmol/L (21-32); CHLORIDE 110 mmol/L (101-111); CHOL/HDL RATIO 3.7 (<5.0); CHOLESTEROL 166 mg/dL; CREATININE 0.9 mg/dL (0.6-1.3); GFR - MDRD 87 (>89); GLUCOSE 99 mg/dL (74-104); HDL CHOLESTEROL 45 mg/dL; LDL CHOLESTEROL,CALCULATED 112 mg/dL; LDL/HDL RATIO 2.5 (<3.6); POTASSIUM 4.3 mmol/L (3.5-4.5); SODIUM 140 mmol/L (135-145); TOTAL PROTEIN 5.9 g/dL (6.4-8.9); TRIGLYCERIDES 44 mg/dL (48-352); VLDL CHOLESTEROL 9 mg/dL
[2023-05-12 15:52] LABS: CREATININE,URINE 93.6 mg/dL
[2023-05-12 16:02] LABS: MICROALBUM/CREATININE RATIO,UR 2021.4 ug/mg (<30.0); MICROALBUMIN,URINE 189.2 mg/dL
[2023-05-12 20:43] LABS: ESTIMATED AVERAGE GLUCOSE 134 mg/dL (70-100); HEMOGLOBIN A1c% 6.3 % (4.27-6.07)
== END 2023-05-12 11:18 | disposition home or self-care (01) ==
LOC: LAB.S 11:17
PROVIDERS: ATTEND Nurse Practitioner
DX: E11.65 Type 2 diabetes mellitus with hyperglycemia (principal)
CPT/HCPCS: 36415; 80053; 80061; 82043; 82570; 83036; 83721